=== PATIENT | male | born 1965 | race Caucasian/White ===

== ENCOUNTER 2017-01-06 20:31 | Inpatient (IN) | payer MEDICARE ==
[~2017-01-06] VITALS: Ht 185.4 cm; Wt 162.2 kg
[~2017-01-06 20:31] MED LIST: ALLO100T PO; ASPI-482 PO; ASPI325T4 PO; CARV3.12 PO; CLOP75TA27 PO; FURO40TA4 PO; GABA-586 PO; HYDR-2672 PO; HYDR-2680 PO; HYDR12.53 PO; ISOS30TA4 PO; Isosorbide Mononitrate PO; LISI-334 PO; LISI-338 PO; METO50TA2 PO; NABU500T PO; NITR0.4T SL; NPH,100V SQ; PARO20TA55 PO; PRED-220 PO; RANO10002 PO; RANO500T2 PO
--- NOTE | 2017-01-06 22:29 | EKG ---
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
--- NOTE | 2017-01-06 22:29 | PHYS DOC ---
Past Medical History Past Medical History: CAD, CHF, Hypertension, Other Additional Past Medical Histor: GOUT, NEUROPATHY, CHRONIC NECK PAIN Past Surgical History: Angioplasty, Coronary Bypass Surgery Additional Past Surgical Histo: STENT PLACEMENT X 4, COLOSTOMY Additional Information: CHEWING TOBACCO Alcohol Use: Rarely Drug Use: None Adult General Chief Complaint Chief Complaint: COUGH HPI HPI Patient is a 51 year old male who presents with complaint of cough and lower extremity swelling. Patient has history congestive heart failure and states that over 2 weeks he gained 27 pounds in water weight. The patient states over the past 2-3 days he has been quadruple in his Lasix dose as directed by his primary physician, Dr. Valencia, and states that he has lost approximately 10 pounds of the water weight. Patient states however that he has had worsening lower extremity swelling and worsening dyspnea on exertion. Patient denies any associated fevers or chest pain currently. Patient states that his cough has been productive of clear sputum. Due to worsening symptoms the patient came to the emergency department after contacting his primary physician. Review of Systems Review of Systems Constitutional: Denies fever or chills [] Eyes: Denies change in visual acuity, redness, or eye pain [] HENT: Denies nasal congestion or sore throat [] Respiratory: Dyspnea on exertion, cough, shortness of breath [] Cardiovascular: Lower extremity edema, denies chest pain [] GI: Denies abdominal pain, nausea, vomiting, bloody stools or diarrhea [] : Denies dysuria or hematuria [] Musculoskeletal: Denies back pain or joint pain [] Integument: Denies rash or skin lesions [] Neurologic: Denies headache, focal weakness or sensory changes [] Allergies Allergies Allergies Coded Allergies Type Severity Reaction Last Updated Verified morphine Allergy Severe Anaphylaxis 08/07/14 Yes adhesive Allergy Intermediate blisters 08/09/14 Yes Physical Exam Physical Exam Constitutional: Alert, afebrile, morbidly obese, no acute distress at rest. [] HENT: Normocephalic, atraumatic, bilateral external ears normal, oropharynx moist, no oral exudates, nose normal. [] Eyes: PERRLA, EOMI, conjunctiva normal, no discharge. [] Neck: Normal range of motion, no tenderness, supple, no stridor. [] Cardiovascular: Tachycardia, regular rhythm, no murmur [] Lungs & Thorax: Mild restriction of air movement bilaterally, fine rales in the bilateral lung bases, no wheezes [] Abdomen: Bowel sounds normal, soft, no tenderness, no masses, no pulsatile masses. [] Skin: Warm, dry, no erythema, no rash. [] Back: No tenderness, no CVA tenderness. [] Extremities: No tenderness, no cyanosis, no clubbing, ROM intact, 3+ pitting edema in the bilateral lower extremities extending to the superior portion of the knees bilaterally. [] Neurologic: Alert and oriented X 3, normal motor function, normal sensory function, no focal deficits noted. [] Current Patient Data Vital Signs Vital Signs Date Time Temp Pulse Resp B/P Pulse Ox O2 Delivery O2 Flow Rate FiO2 01/06/17 21:18 97.7 107 26 94/48 90 Room Air 97.7 Lab Values Laboratory Tests Test 01/06/17 22:18 01/06/17 23:05 White Blood Count 7.0x10^3/uL (4.0-11.0) Red Blood Count 4.25x10^6/uL (4.30-5.70) L Hemoglobin 13.1g/dL (13.0-17.5) Hematocrit 39.1% (39.0-53.0) Mean Corpuscular Volume 92fL (79-100) Mean Corpuscular Hemoglobin 31pg (25-35) Mean Corpuscular Hemoglobin Concent 33g/dL (31-37) Red Cell Distribution Width 15.1% (11.5-14.5) H Platelet Count 178x10^3/uL (140-400) Neutrophils (%) (Auto) 58% (31-73) Lymphocytes (%) (Auto) 22% (24-48) L Monocytes (%) (Auto) 14% (0-9) H Eosinophils (%) (Auto) 5% (0-3) H Basophils (%) (Auto) 1% (0-3) Neutrophils # (Auto) 4.1x10^3uL (1.8-7.7) Lymphocytes # (Auto) 1.6x10^3/uL (1.0-4.8) Monocytes # (Auto) 1.0x10^3/uL (0.0-1.1) Eosinophils # (Auto) 0.3x10^3/uL (0.0-0.7) Basophils # (Auto) 0.1x10^3/uL (0.0-0.2) Sodium Level 137mmol/L (136-145) Potassium Level 4.6mmol/L (3.5-5.1) Chloride Level 96mmol/L (98-107) L Carbon Dioxide Level 29mmol/L (21-32) Anion Gap 12 (6-14) Blood Urea Nitrogen 55mg/dL (8-26) H Creatinine 3.0mg/dL (0.7-1.3) H Estimated GFR (Cockcroft-Gault) 22.0 BUN/Creatinine Ratio 18 (6-20) Glucose Level 226mg/dL (70-99) H Calcium Level 9.4mg/dL (8.5-10.1) Total Bilirubin 0.4mg/dL (0.2-1.0) Aspartate Amino Transferase (AST) 25U/L (15-37) Alanine Aminotransferase (ALT) 37U/L (16-63) Alkaline Phosphatase 72U/L (46-116) Creatine Kinase 665U/L (39-308) H Creatine Kinase MB (Mass) 5.0ng/mL (0.0-3.6) H Creatine Kinase MB Relative Index 0.8% (0-4) Troponin I Quantitative 0.204ng/mL (0.000-0.055) ET-Moo-U-Type Natriuretic Peptide 590pg/mL (0-124) H Total Protein 7.6g/dL (6.4-8.2) Albumin 3.7g/dL (3.4-5.0) Albumin/Globulin Ratio 0.9 (1.0-1.7) L Laboratory Tests 01/06/17 22:18 Laboratory Tests 01/06/17 23:05 EKG EKG Interpreted by me: Heart rate 100, sinus tachycardia, incomplete right bundle branch block, no acute ST elevations or depressions [] Radiology/Procedures Radiology/Procedures Interpreted by me: Pulmonary vascular congestion, no effusions, cardiomegaly [] Course & Med Decision Making Course & Med Decision Making Pertinent Labs and Imaging studies reviewed. (See chart for details) The patient shows clinical signs for decompensated congestive heart failure. Patient's lab work remarkable for elevated troponin level likely due to demand ischemia from decompensated congestive heart failure. 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 I spoke Dr. Valencia who accepted care patient in hospital. Dragon Disclaimer Dragon Disclaimer This electronic medical record was generated, in whole or in part, using a voice recognition dictation system. Departure Departure Impression: Primary Impression: Acute on chronic congestive heart failure Additional Impressions: Elevated troponin Acute renal failure Uncontrolled diabetes mellitus Disposition: ADMITTED INPATIENT Admitting Physician: Noe Valencia Condition: GUARDED Referrals: NOE VALENCIA MD (PCP) Problem Qualifiers Primary Impression: Acute on chronic congestive heart failure Congestive heart failure type: unspecified congestive heart failure type Qualified Code: I50.9 - Heart failure, unspecified Additional Impressions: Acute renal failure Acute renal failure type: unspecified Qualified Code: N17.9 - Acute kidney failure, unspecified Uncontrolled diabetes mellitus Diabetes mellitus type: type 2 Diabetes mellitus complication status: with hyperglycemia Diabetes mellitus metabolic specialist insulin use: unspecified fpc insulin use status Qualified Code: E11.65 - Type 2 diabetes mellitus with hyperglycemia PRINCE STILL MD Jan 06, 2017 22:29
[2017-01-06 22:31] LABS: BASO # 0.1 x10^3/uL (0.0-0.2); BASO % 1 % (0-3); EOS % 5 % (0-3); HEMATOCRIT 39.1 % (39.0-53.0); HEMOGLOBIN 13.1 g/dL (13.0-17.5); LYMPH # 1.6 x10^3/uL (1.0-4.8); LYMPH % 22 % (24-48); MEAN CORPUSCULAR HEMOGLOBIN 31 pg (25-35); MEAN CORPUSCULAR HGB CONC 33 g/dL (31-37); MEAN CORPUSCULAR VOLUME 92 fL (79-100); MONO % 14 % (0-9); NEUT % 58 % (31-73); PLATELET COUNT 178 x10^3/uL (140-400); RED BLOOD COUNT 4.25 x10^6/uL (4.30-5.70); RED CELL DISTRIBUTION WIDTH 15.1 % (11.5-14.5)
[2017-01-06 23:24] LABS: CALCIUM 9.4 mg/dL (8.5-10.1); POTASSIUM 4.6 mmol/L (3.5-5.1)
[2017-01-06 23:29] LABS: ALBUMIN 3.7 g/dL (3.4-5.0); ALBUMIN/GLOBULIN RATIO 0.9 (1.0-1.7); TOTAL BILIRUBIN 0.4 mg/dL (0.2-1.0); TOTAL PROTEIN 7.6 g/dL (6.4-8.2)
[2017-01-06 23:39] LABS: CKMB INDEX 0.8 % (0-4)
[2017-01-07] VITALS (7 sets, daily range): BP systolic 104–138; BP diastolic 60–72
[2017-01-07] MEDS ORDERED: ONDANSETRON PF 4 MG/2 ML VIAL. IV PRN
[2017-01-07] MEDS ORDERED: ACETAMINOPHEN 325 MG TABLET. PO PRN
--- NOTE | 2017-01-07 01:17 | ACF ---
Admission Forms Criteria HEART FAILURE Clinical Indications for Admission to Inpatient Care (Place 'X' for any and all applicable criteria): Admission is indicated by ANY ONE of the following(1)(2)(3)(4): [ ]I. Severe electrolyte abnormalities requiring inpatient care(9) [ ]II. Hemodynamic instability [ ]III. Anasarca [ ]IV. Acute cardiac ischemia causing or associated with failure (Also use Angina or Myocardial Infarction as appropriate) [ ]V. Cardiac arrhythmias of immediate concern [ ]. Precipitating cause for acute decompensation (eg, pneumonia, pulmonary embolism) requires inpatient care [ ]VII. Pulmonary edema that is very severe (eg, mechanical ventilation needed, imminent or likely, need for 100% oxygen to keep oxygen saturation above 90%) [ ]VIII. Inpatient admission required rather than observation care (Also use Heart Failure: Observation Care as appropriate) because of ANY ONE of the following: [ ]a) Pulmonary edema that is severe or worsening as indicated by ALL of the following: [ ]i) New need for oxygen therapy to keep oxygen saturation above 90% (or increased FiO2 need from baseline) [ ]ii) Has not improved sufficiently with emergency department or observation care IV diuretics or other heart failure treatments[C] [ ]b) Cognitive impairment that is severe or persistent [ ]c) Increased creatinine (new on laboratory test) with reduction of more than 50% in estimated glomerular filtration rate from baseline. [ ]d) Acute renal insufficiency (progressively (ongoing) rising creatinine (known from past laboratory test) with reduction of more than 25% in estimated glomerular filtration rate from baseline) [ ]e) Acute peripheral ischemia (eg, pulseless, cool, mottled, or cyanotic extremity) [ ]f) Acute renal failure [ ]g) Supplemental O2 or respiratory treatment for >24 hr that are performable only in acute inpatient setting [ ]h) Pulmonary artery catheter monitoring [ ]i) Other condition, treatment or monitoring requiring inpatient admission [X]IX. Contraindications and/or Inappropriate clinical situations for Observational Care in patients with Heart Failure, when ANY ONE of the following is required: [ ]a) Patient with High risk of cardiac embolism (e.g, patients with previous cardiac embolism, LVEF < 40%, age >75 and patients with prosthetic valve) 18 [ ]b) Patient with Moderate risk including DM patient, CAD and patient aged 65-75 [ ]c) Patient with any change in cardiac biomarker especially troponin should be managed as high risk in an inpatient setting 19 [ ]d) Physician judgement irrespective of ECG and other diagnostic findings 20 [ ]e) Patients with hyponatremia have high risk for mortality and require more extensive care and length of stay 21 [X]f) Need for large volume diuresis 21 [ ]g) Presence of renal insufficiency or hypotension limiting speed of diuresis 21 [ ]h) Acute cardiac Ischemia in the elderly 21 [ ]i) Patients with a 30 day risk of mortality based on a multidimensional prognostic index (MPI) [J,]21 [ ]X. General contraindications and/or Inappropriate clinical situations for Observational Care in patients with Heart Failure, when ANY ONE of the following is required: [ ]a) Prediction of prolongation of LOS based on ANY ONE of the following may be considered as a contraindication for observational care 2, 3, 4, 5, 6, 7, 8 , 9, 10, 11 [ ]i) Age > 65 yrs. [ ]ii) Patient arriving by ambulance [ ]iii) Patient with high acuity [ ]iv) Patient requiring vital sign monitoring [ ]v) Patient on IV medication [ ]b) Systolic blood pressures 180mmHg 3,12 [ ]c) Patient with altered mental status including delirium and other alteration of consciousness, (3) [ ]d) Patient whose discharge disposition will be to a [facility] home or rehabilitation home should not be managed in Emergency Department Observation Unit. CMS rule requires 3 days hospital stay before such placement.3,13 [ ]e) Patient with failure to thrive due to broad array of etiologies 3,16,17 [ ]f) Inability to ambulate 3,14 Extended stay beyond goal length of stay may be needed for(1)(3)(21)(25): [ ]a) Cardiac ischemia, confirmed or suspected as precipitant [ ]b) Cardiogenic shock or refractory pulmonary edema [ ]c) Acute kidney injury or renal failure [ ]d) Respiratory failure (eg, need for noninvasive or invasive mechanical ventilation) (23) [ ]e) Concomitant pneumonia or significant electrolyte abnormality (eg, severe hyponatremia) [ ]f) Newly diagnosed (new onset) atrial fibrillation [ ]g) Stage IV chronic kidney disease (estimated glomerular filtration rate of less than 30 mL/min/1.73m2 (0.50 mL/sec/1.73m2), and not previously on chronic dialysis The original [facility] content created by [facility], [place] [facility] has been revised. The portions of the content which have been revised are identified through the use of italic text or in bold, and [facility], [place] [facility] has neither reviewed nor approved the modified material. All other unmodified content is copyright [facility]. Please see references footnoted in the original [facility] edition 2016 Admission Criteria Met?: Yes GASPER VALENZUELA Jan 07, 2017 01:17
[2017-01-07] MEDS ORDERED: NITROGLYCERIN SUBLINGUAL 0.4 MG BOTTLE OF 25. SL PRN (02:15)
[2017-01-07] MEDS: HYDROCODONE/APAP 10/325 TABLET. PO PRN ×3 (02:38→21:51)
[2017-01-07 04:18] LABS: BASO % 0 % (0-3); EOS % 4 % (0-3); HEMATOCRIT 39.7 % (39.0-53.0); HEMOGLOBIN 13.1 g/dL (13.0-17.5); LYMPH # 1.4 x10^3/uL (1.0-4.8); LYMPH % 21 % (24-48); MEAN CORPUSCULAR HEMOGLOBIN 31 pg (25-35); MEAN CORPUSCULAR HGB CONC 33 g/dL (31-37); MEAN CORPUSCULAR VOLUME 92 fL (79-100); MONO % 15 % (0-9); NEUT % 60 % (31-73); PLATELET COUNT 177 x10^3/uL (140-400); RED BLOOD COUNT 4.31 x10^6/uL (4.30-5.70); RED CELL DISTRIBUTION WIDTH 14.9 % (11.5-14.5); WHITE BLOOD COUNT 6.9 x10^3/uL (4.0-11.0)
[2017-01-07 04:41] LABS: CALCIUM 9.3 mg/dL (8.5-10.1); CREATININE 2.8 mg/dL (0.7-1.3); GFR 23.8; POTASSIUM 4.5 mmol/L (3.5-5.1)
[2017-01-07] MEDS ORDERED: DEXTROSE 50% 25 GM / 50ML DISP.SYRIN. IV PRN ×2 (07:15→15:00)
--- NOTE | 2017-01-07 07:47 | RAD ---
AP portable chest radiograph 01/06/2017 Clinical History: Cough and shortness of breath for 4 days. An AP portable erect digital radiograph of the chest was obtained. Comparison study is dated 06/30/2015. The patient is status post CABG procedure. The cardiac silhouette is mildly enlarged. Thoracic aorta is mildly tortuous. No acute pulmonary infiltrate is seen. No pleural effusion or pneumothorax is noted. The osseous structures are grossly intact. Impression: No acute abnormality is seen.
[2017-01-07] MEDS ORDERED: HYDROCHLOROTHIAZIDE 25 MG TABLET PO SCH (09:00)
[2017-01-07] MEDS ORDERED: MELOXICAM 7.5 MG TABLET PO SCH (09:00)
[2017-01-07] MEDS ORDERED: ISOSORBIDE MONONITRATE ER 30 MG TAB.ER.24H PO SCH (09:00)
[2017-01-07] MEDS ORDERED: FUROSEMIDE 40 MG/4 ML VIAL. IVP SCH (09:00)
[2017-01-07] MEDS ORDERED: HYDROCODONE/APAP 10/325 TABLET. PO SCH (09:00)
[2017-01-07] MEDS ORDERED: LISINOPRIL 20 MG TABLET PO SCH (09:00)
[2017-01-07] MEDS ORDERED: ALLOPURINOL 300 MG TABLET. PO SCH (09:00)
--- NOTE | 2017-01-07 09:43 | PDOC ---
Provider Note Provider Note [id number] LATRICIA SOLORZANO MD Jan 07, 2017 09:43
[2017-01-07] MEDS: RANOLAZINE 500 MG TAB.ER.12H PO SCH ×2 (10:07→20:57)
[2017-01-07] MEDS: CLOPIDOGREL BISULFATE 75 MG TABLET PO SCH (10:08)
[2017-01-07] MEDS: GABAPENTIN 300 MG CAPSULE. PO SCH ×2 (10:08→20:56)
[2017-01-07] MEDS: PAROXETINE 20 MG TABLET. PO SCH (10:12)
[2017-01-07] MEDS: CARVEDILOL 3.125 MG TABLET. PO SCH ×2 (10:12→18:12)
[2017-01-07] MEDS: ASPIRIN ENTERIC COATED 81 MG TABLET.DR. PO SCH (10:12)
[2017-01-07] MEDS: ISOSORBIDE MONONITRATE ER 30 MG TAB.ER.24H PO SCH (10:13)
--- NOTE | 2017-01-07 11:13 | HP ---
ADMIT DATE: 01/07/2017 CHIEF COMPLAINT: Shortness of breath and edema. HISTORY OF PRESENT ILLNESS: A 51-year-old white male with known coronary artery disease, diabetes, and Crohn's disease. He has had increasing swelling and dyspnea and orthopnea and PND for the last 2 weeks despite outpatient increasing dose of Lasix. He is found also to be in acute renal failure in the ER, which is new for him, although he had it about 3 months ago when he had before cardiac catheterization, but that resolved. PAST MEDICAL HISTORY: Multiple. MEDICATIONS: Per chart. ALLERGIES: MORPHINE. SURGICAL HISTORY: He has had a coronary bypass and ileostomy. SOCIAL HISTORY: Nonsmoker, nondrinker, physically active as he is capable. FAMILY HISTORY: Unremarkable. REVIEW OF SYSTEMS: No other known problems. OBJECTIVE: ENT: ____, mildly cushingoid facies, otherwise unremarkable. NECK: No bruits, nodes or masses. LUNGS: Decreased breath sounds. Few basilar crackles, no wheezes. CARDIOVASCULAR: Regular rate. Heart tones distant. No irregular beat or murmur or rub. ABDOMEN: Protuberant, obese, benign, nontender. EXTREMITIES: 2-3+ edema just below the knees bilaterally. Pedal pulses are diminished consistent with lower blood pressure. Upper extremities normal. NEUROLOGIC: Physiologic. ASSESSMENT: Edema, likely multifactorial in a patient with history of coronary artery disease, diabetes, Crohn's disease and sleep apnea. He also has prior history of some renal problems with the baseline creatinine was around 1.2. PLAN: As ordered. LATRICIA SOLORZANO MD DR: MIREYA/sandrita JOB#: [id number] / [id number]
--- NOTE | 2017-01-07 12:06 | PDOC2 ---
CONSULT Date of Consult Date of Consult DATE: 01/07/17 TIME: 11:58 Reason for Consult Reason for Consult: ANTOINE Referring Physician Referring Physician: JEANINE Identification/Chief Complaint Chief Complaint SOB AND SWELLING Source Source: Chart review, Patient History of Present Illness Reason for Visit: THIS IS A 51 YR OLD HERE WITH COMPLAINTS OF SOB AND INCREASING LE EDEMA. NO CKD IS NOTED BUT HE HAS HAD SOME MILD ANTOINE WITH CR OF IN SEP OF LAST YEAR. ON THIS ADMIT HIS CREATININE LEVEL IS 3.0. MEDS INCLUDED MOBIC, LASIX, HCTZ AND LISINOPRIL AT HOME. NO HX OF ANY DIFFICULTY EMPTYING HIS BLADDER. NO HX OF ANY KIDNEY OR BLADDER SURGERIES HEMATURIA DYSURIA OR FREQUENCY NOTED. HIS BNP IS NOT VERY HIGH. HE ALSO HAS A LEFT PRETIBIAL AREA WOUND Past Medical History Cardiovascular: CAD, CHF, HTN, [place] Pulmonary: COPD Renal/: Acute renal failure Endocrine: Diabetes Current Problem List Problem List Problems Medical Problems: (1) Acute on chronic congestive heart failure Status: Acute (2) Acute renal failure Status: Acute (3) Elevated troponin Status: Acute (4) Uncontrolled diabetes mellitus Status: Acute Current Medications Current Medications Current Medications Ondansetron HCl (Zofran) 4 mg PRN Q8HRS PRN IV NAUSEA/VOMITING; Start 01/07/17 at 00:00; Stop 01/07/17 at 23:59 Acetaminophen (Tylenol) 650 mg PRN Q4HRS PRN PO FEVER; Start 01/07/17 at 00:00 ; Stop 01/07/17 at 23:59 Furosemide (Lasix) 80 mg BID92 IVP Last administered on 01/07/17 10:04; Start 01/07/17 at 09:00 Allopurinol (Zyloprim) 300 mg DAILY PO ; Start 01/07/17 at 09:00; Stop 01/07/17 at 09:34; Status DC Aspirin (Ecotrin) 81 mg DAILY PO Last administered on 01/07/17 10:12; Start at 09:00 Carvedilol (Coreg) 3.125 mg BIDWMEALS PO Last administered on 01/07/17 10:12; Start 01/07/17 at 08:00 Clopidogrel Bisulfate (Plavix) 75 mg DAILY PO Last administered on 01/07/17 10 :08; Start 01/07/17 at 09:00 Hydrochlorothiazide (Hydrodiuril) 25 mg DAILY PO ; Start 01/07/17 at 09:00; Stop 01/07/17 at 09:34; Status DC Acetaminophen/ Hydrocodone Bitart (Lortab 10/325) 1 tab QID PO ; Start 01/07/17 at 09:00; Stop 01/07/17 at 09:00; Status DC Isosorbide Mononitrate (Imdur) 30 mg TID PO ; Start 01/07/17 at 09:00; Stop at 09:34; Status DC Lisinopril (Prinivil) 20 mg DAILY PO ; Start 01/07/17 at 09:00; Stop 01/07/17 at 09:34; Status DC Nitroglycerin (Nitrostat) 0.4 mg PRN Q5MIN PRN SL CHEST PAIN; Start 01/07/17 at 02:15 Paroxetine HCl (Paxil) 20 mg DAILY PO Last administered on 01/07/17 10:12; Start 01/07/17 at 09:00 Gabapentin (Neurontin) 300 mg BID PO Last administered on 01/07/17 10:08; Start 01/07/17 at 09:00 Meloxicam (Mobic) 7.5 mg DAILY PO ; Start 01/07/17 at 09:00; Stop 01/07/17 at 09 :34; Status DC Insulin Detemir (Levemir) 135 units BID SQ ; Start 01/07/17 at 21:00 Ranolazine (Ranexa) 1,000 mg BID PO Last administered on 01/07/17 10:07; Start 01/07/17 at 09:00 Acetaminophen/ Hydrocodone Bitart (Lortab 10/325) 1 tab PRN Q6HRS PRN PO SEVERE PAIN Last administered on 01/07/17 10:06; Start 01/07/17 at 02:30 Dextrose (Dextrose 50%-Water Syringe) 12.5 gm PRN Q15MIN PRN IV SEE COMMENTS; Start 01/07/17 at 07:15 Isosorbide Mononitrate (Imdur) 30 mg DAILY08 PO Last administered on 01/07/17 10:13; Start 01/07/17 at 10:00 Active Scripts Active Coreg (Carvedilol) 3.125 Mg Tablet 3.125 Mg PO BIDWMEALS Reported Prednisone 10 Mg Tablet 10 Mg PO UD Take 3 tablets by mouth twice a day for 3 days, then take 2 tablets by mouth twice a day for 3 days, then take 1 tablet by mouth twice a day for 3 days, then take 1 tablet by mouth daily x 3 days, then stop. Furosemide 40 Mg Tablet 1 Tab PO DAILY Aspir 81 (Aspirin) 81 Mg Tablet.dr 1 Tab PO DAILY Nitrostat (Nitroglycerin) 0.4 Mg Tab.subl 0.4 Mg SL PRN Q5MIN PRN Isosorbide Mononitrate Er (Isosorbide Mononitrate) 30 Mg Tab.er.24h 30 Mg PO TID Ranexa (Ranolazine) 1,000 Mg Tab.er.12h 1 Tab PO BID Lisinopril 20 Mg Tablet 1 Tab PO DAILY Lortab 10-325 mg Tablet (Hydrocodone/Acetaminophen) 1 Each Tablet 1 Tab PO QID Plavix (Clopidogrel Bisulfate) 75 Mg Tablet 1 Tab PO DAILY Gabapentin 300 Mg Capsule 1 Cap PO BID Hydrochlorothiazide Capsule (Hydrochlorothiazide) 12.5 Mg Capsule 25 Mg PO DAILY Paxil (Paroxetine Hcl) 20 Mg Tablet 1 Tab PO DAILY Allopurinol 100 Mg Tablet 3 Tab PO DAILY Nabumetone 500 Mg Tablet 1 Tab PO BID Humulin N (Nph, Human Insulin Isophane) 100 Unit/1 Ml Vial 90 Unit SQ TID Allergies Allergies: Coded Allergies: morphine (Verified Allergy, Severe, Anaphylaxis, 08/07/14) adhesive (Verified Allergy, Intermediate, blisters, 08/09/14) ROS General: YES: Appetite, Fatigue PSYCHOLOGICAL ROS: YES: Anxiety Eyes: Yes Decreased vision HEENT: YES: Heacaches Respiratory: YES: Shortness of breath Cardiovascular: yes Edema, yes Orthopnea Genitourinary: YES Other Neurological: Yes Weakness Physical Exam General: Alert, No acute distress Lungs: Clear to auscultation, Normal air movement Heart: Regular rate Abdomen: Normal bowel sounds Extremities: No clubbing Neuro: Normal speech, Cranial nerves 3-12 NL Psych/Mental Status: Mental status NL, Mood NL MUSCULOSKELETAL: No deformity Vitals VITALS Vital Signs Date Time Temp Pulse Resp B/P Pulse Ox O2 Delivery O2 Flow Rate FiO2 01/07/17 11:04 98.2 97 18 120/68 95 Room Air 98.2 Labs Labs Laboratory Tests Test 01/06/17 22:18 01/06/17 23:05 01/07/17 03:37 01/07/17 10:49 White Blood Count 7.0x10^3/uL (4.0-11.0) 6.9x10^3/uL (4.0-11.0) Red Blood Count 4.25x10^6/uL (4.30-5.70) 4.31x10^6/uL (4.30-5.70) Hemoglobin 13.1g/dL (13.0-17.5) 13.1g/dL (13.0-17.5) Hematocrit 39.1% (39.0-53.0) 39.7% (39.0-53.0) Mean Corpuscular Volume 92fL (79-100) 92fL (79-100) Mean Corpuscular Hemoglobin 31pg (25-35) 31pg (25-35) Mean Corpuscular Hemoglobin Concent 33g/dL (31-37) 33g/dL (31-37) Red Cell Distribution Width 15.1% (11.5-14.5) 14.9% (11.5-14.5) Platelet Count 178x10^3/uL (140-400) 177x10^3/uL (140-400) Neutrophils (%) (Auto) 58% (31-73) 60% (31-73) Lymphocytes (%) (Auto) 22% (24-48) 21% (24-48) Monocytes (%) (Auto) 14% (0-9) 15% (0-9) Eosinophils (%) (Auto) 5% (0-3) 4% (0-3) Basophils (%) (Auto) 1% (0-3) 0% (0-3) Neutrophils # (Auto) 4.1x10^3uL (1.8-7.7) 4.1x10^3uL (1.8-7.7) Lymphocytes # (Auto) 1.6x10^3/uL (1.0-4.8) 1.4x10^3/uL (1.0-4.8) Monocytes # (Auto) 1.0x10^3/uL (0.0-1.1) 1.0x10^3/uL (0.0-1.1) Eosinophils # (Auto) 0.3x10^3/uL (0.0-0.7) 0.3x10^3/uL (0.0-0.7) Basophils # (Auto) 0.1x10^3/uL (0.0-0.2) 0.0x10^3/uL (0.0-0.2) Sodium Level 137mmol/L (136-145) 137mmol/L (136-145) Potassium Level 4.6mmol/L (3.5-5.1) 4.5mmol/L (3.5-5.1) Chloride Level 96mmol/L (98-107) 97mmol/L (98-107) Carbon Dioxide Level 29mmol/L (21-32) 30mmol/L (21-32) Anion Gap 12 (6-14) 10 (6-14) Blood Urea Nitrogen 55mg/dL (8-26) 55mg/dL (8-26) Creatinine 3.0mg/dL (0.7-1.3) 2.8mg/dL (0.7-1.3) Estimated GFR (Cockcroft-Gault) 22.0 23.8 BUN/Creatinine Ratio 18 (6-20) Glucose Level 226mg/dL (70-99) 202mg/dL (70-99) Calcium Level 9.4mg/dL (8.5-10.1) 9.3mg/dL (8.5-10.1) Total Bilirubin 0.4mg/dL (0.2-1.0) Aspartate Amino Transf (AST/SGOT) 25U/L (15-37) Alanine Aminotransferase (ALT/SGPT) 37U/L (16-63) Alkaline Phosphatase 72U/L (46-116) Creatine Kinase 665U/L (39-308) Creatine Kinase MB (Mass) 5.0ng/mL (0.0-3.6) Creatine Kinase MB Relative Index 0.8% (0-4) Troponin I Quantitative 0.204ng/mL (0.000-0.055) 0.197ng/mL (0.000-0.055) XF-Xbn-P-Type Natriuretic Peptide 590pg/mL (0-124) Total Protein 7.6g/dL (6.4-8.2) Albumin 3.7g/dL (3.4-5.0) Albumin/Globulin Ratio 0.9 (1.0-1.7) Glucose (Fingerstick) 264mg/dL (70-99) Laboratory Tests Test 01/06/17 22:18 01/06/17 23:05 01/07/17 03:37 01/07/17 10:49 White Blood Count 7.0x10^3/uL (4.0-11.0) 6.9x10^3/uL (4.0-11.0) Red Blood Count 4.25x10^6/uL (4.30-5.70) 4.31x10^6/uL (4.30-5.70) Hemoglobin 13.1g/dL (13.0-17.5) 13.1g/dL (13.0-17.5) Hematocrit 39.1% (39.0-53.0) 39.7% (39.0-53.0) Mean Corpuscular Volume 92fL (79-100) 92fL (79-100) Mean Corpuscular Hemoglobin 31pg (25-35) 31pg (25-35) Mean Corpuscular Hemoglobin Concent 33g/dL (31-37) 33g/dL (31-37) Red Cell Distribution Width 15.1% (11.5-14.5) 14.9% (11.5-14.5) Platelet Count 178x10^3/uL (140-400) 177x10^3/uL (140-400) Neutrophils (%) (Auto) 58% (31-73) 60% (31-73) Lymphocytes (%) (Auto) 22% (24-48) 21% (24-48) Monocytes (%) (Auto) 14% (0-9) 15% (0-9) Eosinophils (%) (Auto) 5% (0-3) 4% (0-3) Basophils (%) (Auto) 1% (0-3) 0% (0-3) Neutrophils # (Auto) 4.1x10^3uL (1.8-7.7) 4.1x10^3uL (1.8-7.7) Lymphocytes # (Auto) 1.6x10^3/uL (1.0-4.8) 1.4x10^3/uL (1.0-4.8) Monocytes # (Auto) 1.0x10^3/uL (0.0-1.1) 1.0x10^3/uL (0.0-1.1) Eosinophils # (Auto) 0.3x10^3/uL (0.0-0.7) 0.3x10^3/uL (0.0-0.7) Basophils # (Auto) 0.1x10^3/uL (0.0-0.2) 0.0x10^3/uL (0.0-0.2) Sodium Level 137mmol/L (136-145) 137mmol/L (136-145) Potassium Level 4.6mmol/L (3.5-5.1) 4.5mmol/L (3.5-5.1) Chloride Level 96mmol/L (98-107) 97mmol/L (98-107) Carbon Dioxide Level 29mmol/L (21-32) 30mmol/L (21-32) Anion Gap 12 (6-14) 10 (6-14) Blood Urea Nitrogen 55mg/dL (8-26) 55mg/dL (8-26) Creatinine 3.0mg/dL (0.7-1.3) 2.8mg/dL (0.7-1.3) Estimated GFR (Cockcroft-Gault) 22.0 23.8 BUN/Creatinine Ratio 18 (6-20) Glucose Level 226mg/dL (70-99) 202mg/dL (70-99) Calcium Level 9.4mg/dL (8.5-10.1) 9.3mg/dL (8.5-10.1) Total Bilirubin 0.4mg/dL (0.2-1.0) Aspartate Amino Transf (AST/SGOT) 25U/L (15-37) Alanine Aminotransferase (ALT/SGPT) 37U/L (16-63) Alkaline Phosphatase 72U/L (46-116) Creatine Kinase 665U/L (39-308) Creatine Kinase MB (Mass) 5.0ng/mL (0.0-3.6) Creatine Kinase MB Relative Index 0.8% (0-4) Troponin I Quantitative 0.204ng/mL (0.000-0.055) 0.197ng/mL (0.000-0.055) TL-Oci-M-Type Natriuretic Peptide 590pg/mL (0-124) Total Protein 7.6g/dL (6.4-8.2) Albumin 3.7g/dL (3.4-5.0) Albumin/Globulin Ratio 0.9 (1.0-1.7) Glucose (Fingerstick) 264mg/dL (70-99) Assessment/Plan Assessment/Plan IMP ANTOINE PROB DEHYDRATION LE EDEMA LEFT PRETIBIAL WOUND PLAN AVOID GUERRA 2 INHIBITORS HOLD YOSVANY AND HCTZ FOR NOW DECREASE LASIX LE EDEMA MOST LIKELY INFLAMMATORY IN NATURE HIS BNP AND CXRAY ARE NOT SUGGESTIVE OF HYPERVOLEMIA RENAL SONOGRAM MAGDALENE QUINTANILLA MD Jan 07, 2017 12:06
[2017-01-07] MEDS: FUROSEMIDE 40 MG/4 ML VIAL. IVP SCH (15:06)
[2017-01-07] MEDS: INSULIN DETEMIR 300 UNITS/3 ML INSULN.PEN. SQ SCH ×2 (15:19→21:55)
--- NOTE | 2017-01-07 15:43 | RAD ---
Renal ultrasound 01/07/2017 Clinical history: Chronic kidney disease. Technique: A real-time ultrasound examination of both kidneys and the urinary bladder was performed. Multiple images were obtained. Findings: Both kidneys are within normal limits in size. The right kidney measures 11.8 cm in length. The left kidney measures 12.6 cm in length. A 2.7 cm simple cyst is seen involving the midpole of the left kidney. No additional abnormality of either kidney is seen. There is no evidence of hydronephrosis. The urinary bladder is distended with urine. No abnormality is seen. The urinary volume is estimated to be 443 mL. Impression: Negative study.
--- NOTE | 2017-01-07 15:54 | PDOC2 ---
CONSULT Date of Consult Date of Consult DATE: 01/07/17 TIME: 15:43 Reason for Consult Reason for Consult: Acute on Chronic CHF Referring Physician Referring Physician: Dr. Noe Valencia Identification/Chief Complaint Chief Complaint Cough, lower extremity edema Source Source: Chart review, Patient History of Present Illness Reason for Visit: Patient complains of nonproductive cough and edema of 2 weeks duration. PMH significant for CHF, DM2, Crohns, CAD s/p CABG x3, and multiple cardiac stents. Over the past 2 weeks, the patient put on over 20 pounds in water weight. His PCP (Dr. Valencia) told him to quadruple his lasix dose to 80mg resulting in him losing 10 pounds of the water weight in 2-3 days duration. He did not feel that he was progressing well enough and came into the ED to be admitted. He denies CP and fever. Past Medical History Cardiovascular: CAD, CHF, HTN, [place] Pulmonary: COPD Renal/: Acute renal failure Endocrine: Diabetes Current Problem List Problem List Problems Medical Problems: (1) Acute on chronic congestive heart failure Status: Acute (2) Acute renal failure Status: Acute (3) Elevated troponin Status: Acute (4) Uncontrolled diabetes mellitus Status: Acute Current Medications Current Medications Current Medications Ondansetron HCl (Zofran) 4 mg PRN Q8HRS PRN IV NAUSEA/VOMITING; Start 01/07/17 at 00:00; Stop 01/07/17 at 23:59 Acetaminophen (Tylenol) 650 mg PRN Q4HRS PRN PO FEVER; Start 01/07/17 at 00:00 ; Stop 01/07/17 at 23:59 Furosemide (Lasix) 80 mg BID92 IVP Last administered on 01/07/17 10:04; Start 01/07/17 at 09:00; Stop 01/07/17 at 12:08; Status DC Allopurinol (Zyloprim) 300 mg DAILY PO ; Start 01/07/17 at 09:00; Stop 01/07/17 at 09:34; Status DC Aspirin (Ecotrin) 81 mg DAILY PO Last administered on 01/07/17 10:12; Start at 09:00 Carvedilol (Coreg) 3.125 mg BIDWMEALS PO Last administered on 01/07/17 10:12; Start 01/07/17 at 08:00 Clopidogrel Bisulfate (Plavix) 75 mg DAILY PO Last administered on 01/07/17 10 :08; Start 01/07/17 at 09:00 Hydrochlorothiazide (Hydrodiuril) 25 mg DAILY PO ; Start 01/07/17 at 09:00; Stop 01/07/17 at 09:34; Status DC Acetaminophen/ Hydrocodone Bitart (Lortab 10/325) 1 tab QID PO ; Start 01/07/17 at 09:00; Stop 01/07/17 at 09:00; Status DC Isosorbide Mononitrate (Imdur) 30 mg TID PO ; Start 01/07/17 at 09:00; Stop at 09:34; Status DC Lisinopril (Prinivil) 20 mg DAILY PO ; Start 01/07/17 at 09:00; Stop 01/07/17 at 09:34; Status DC Nitroglycerin (Nitrostat) 0.4 mg PRN Q5MIN PRN SL CHEST PAIN; Start 01/07/17 at 02:15 Paroxetine HCl (Paxil) 20 mg DAILY PO Last administered on 01/07/17 10:12; Start 01/07/17 at 09:00 Gabapentin (Neurontin) 300 mg BID PO Last administered on 01/07/17 10:08; Start 01/07/17 at 09:00 Meloxicam (Mobic) 7.5 mg DAILY PO ; Start 01/07/17 at 09:00; Stop 01/07/17 at 09 :34; Status DC Insulin Detemir (Levemir) 135 units BID SQ ; Start 01/07/17 at 21:00; Stop 01/07 at 21:00; Status DC Ranolazine (Ranexa) 1,000 mg BID PO Last administered on 01/07/17 10:07; Start 01/07/17 at 09:00 Acetaminophen/ Hydrocodone Bitart (Lortab 10/325) 1 tab PRN Q6HRS PRN PO SEVERE PAIN Last administered on 01/07/17 02:38; Start 01/07/17 at 02:30 Dextrose (Dextrose 50%-Water Syringe) 12.5 gm PRN Q15MIN PRN IV SEE COMMENTS; Start 01/07/17 at 07:15; Stop 01/07/17 at 14:57; Status DC Isosorbide Mononitrate (Imdur) 30 mg DAILY08 PO Last administered on 01/07/17 10:13; Start 01/07/17 at 10:00 Furosemide (Lasix) 40 mg BID92 IVP Last administered on 01/07/17 15:06; Start 01/07/17 at 14:00 Insulin Detemir (Levemir) 60 units QHS SQ Last administered on 01/07/17 15:19 ; Start 01/07/17 at 15:00 Insulin Detemir (Levemir) 60 units DAILY08 SQ ; Start 01/08/17 at 08:00 Dextrose (Dextrose 50%-Water Syringe) 12.5 gm PRN Q15MIN PRN IV SEE COMMENTS; Start 01/07/17 at 15:00 Insulin Aspart (Novolog) 10 units TIDAC SQ ; Start 01/07/17 at 16:30 Active Scripts Active Coreg (Carvedilol) 3.125 Mg Tablet 3.125 Mg PO BIDWMEALS Reported Prednisone 10 Mg Tablet 10 Mg PO UD Take 3 tablets by mouth twice a day for 3 days, then take 2 tablets by mouth twice a day for 3 days, then take 1 tablet by mouth twice a day for 3 days, then take 1 tablet by mouth daily x 3 days, then stop. Furosemide 40 Mg Tablet 1 Tab PO DAILY Aspir 81 (Aspirin) 81 Mg Tablet.dr 1 Tab PO DAILY Nitrostat (Nitroglycerin) 0.4 Mg Tab.subl 0.4 Mg SL PRN Q5MIN PRN Isosorbide Mononitrate Er (Isosorbide Mononitrate) 30 Mg Tab.er.24h 30 Mg PO TID Ranexa (Ranolazine) 1,000 Mg Tab.er.12h 1 Tab PO BID Lisinopril 20 Mg Tablet 1 Tab PO DAILY Lortab 10-325 mg Tablet (Hydrocodone/Acetaminophen) 1 Each Tablet 1 Tab PO QID Plavix (Clopidogrel Bisulfate) 75 Mg Tablet 1 Tab PO DAILY Gabapentin 300 Mg Capsule 1 Cap PO BID Hydrochlorothiazide Capsule (Hydrochlorothiazide) 12.5 Mg Capsule 25 Mg PO DAILY Paxil (Paroxetine Hcl) 20 Mg Tablet 1 Tab PO DAILY Allopurinol 100 Mg Tablet 3 Tab PO DAILY Nabumetone 500 Mg Tablet 1 Tab PO BID Humulin N (Nph, Human Insulin Isophane) 100 Unit/1 Ml Vial 90 Unit SQ TID Allergies Allergies: Coded Allergies: morphine (Verified Allergy, Severe, Anaphylaxis, 08/07/14) adhesive (Verified Allergy, Intermediate, blisters, 08/09/14) Physical Exam General: Alert, Oriented X3, Cooperative, No acute distress HEENT: Atraumatic, EOMI Lungs: Clear to auscultation Heart: Regular rate, Normal S1, Normal S2, Other (distant heart sounds) Abdomen: Soft, No tenderness Extremities: Other (3+ pitting edema in bilateral lower extremities below knee) Skin: Other (pretibial L lesion) Neuro: Normal speech, Normal tone Psych/Mental Status: Mental status NL, Mood NL Vitals VITALS Vital Signs Date Time Temp Pulse Resp B/P Pulse Ox O2 Delivery O2 Flow Rate FiO2 01/07/17 15:00 98.6 94 18 111/64 92 Room Air 98.6 Labs Labs Laboratory Tests Test 01/06/17 22:18 01/06/17 23:05 01/07/17 03:37 01/07/17 10:49 White Blood Count 7.0x10^3/uL (4.0-11.0) 6.9x10^3/uL (4.0-11.0) Red Blood Count 4.25x10^6/uL (4.30-5.70) 4.31x10^6/uL (4.30-5.70) Hemoglobin 13.1g/dL (13.0-17.5) 13.1g/dL (13.0-17.5) Hematocrit 39.1% (39.0-53.0) 39.7% (39.0-53.0) Mean Corpuscular Volume 92fL (79-100) 92fL (79-100) Mean Corpuscular Hemoglobin 31pg (25-35) 31pg (25-35) Mean Corpuscular Hemoglobin Concent 33g/dL (31-37) 33g/dL (31-37) Red Cell Distribution Width 15.1% (11.5-14.5) 14.9% (11.5-14.5) Platelet Count 178x10^3/uL (140-400) 177x10^3/uL (140-400) Neutrophils (%) (Auto) 58% (31-73) 60% (31-73) Lymphocytes (%) (Auto) 22% (24-48) 21% (24-48) Monocytes (%) (Auto) 14% (0-9) 15% (0-9) Eosinophils (%) (Auto) 5% (0-3) 4% (0-3) Basophils (%) (Auto) 1% (0-3) 0% (0-3) Neutrophils # (Auto) 4.1x10^3uL (1.8-7.7) 4.1x10^3uL (1.8-7.7) Lymphocytes # (Auto) 1.6x10^3/uL (1.0-4.8) 1.4x10^3/uL (1.0-4.8) Monocytes # (Auto) 1.0x10^3/uL (0.0-1.1) 1.0x10^3/uL (0.0-1.1) Eosinophils # (Auto) 0.3x10^3/uL (0.0-0.7) 0.3x10^3/uL (0.0-0.7) Basophils # (Auto) 0.1x10^3/uL (0.0-0.2) 0.0x10^3/uL (0.0-0.2) Sodium Level 137mmol/L (136-145) 137mmol/L (136-145) Potassium Level 4.6mmol/L (3.5-5.1) 4.5mmol/L (3.5-5.1) Chloride Level 96mmol/L (98-107) 97mmol/L (98-107) Carbon Dioxide Level 29mmol/L (21-32) 30mmol/L (21-32) Anion Gap 12 (6-14) 10 (6-14) Blood Urea Nitrogen 55mg/dL (8-26) 55mg/dL (8-26) Creatinine 3.0mg/dL (0.7-1.3) 2.8mg/dL (0.7-1.3) Estimated GFR (Cockcroft-Gault) 22.0 23.8 BUN/Creatinine Ratio 18 (6-20) Glucose Level 226mg/dL (70-99) 202mg/dL (70-99) Calcium Level 9.4mg/dL (8.5-10.1) 9.3mg/dL (8.5-10.1) Total Bilirubin 0.4mg/dL (0.2-1.0) Aspartate Amino Transf (AST/SGOT) 25U/L (15-37) Alanine Aminotransferase (ALT/SGPT) 37U/L (16-63) Alkaline Phosphatase 72U/L (46-116) Creatine Kinase 665U/L (39-308) Creatine Kinase MB (Mass) 5.0ng/mL (0.0-3.6) Creatine Kinase MB Relative Index 0.8% (0-4) Troponin I Quantitative 0.204ng/mL (0.000-0.055) 0.197ng/mL (0.000-0.055) DR-Tru-O-Type Natriuretic Peptide 590pg/mL (0-124) Total Protein 7.6g/dL (6.4-8.2) Albumin 3.7g/dL (3.4-5.0) Albumin/Globulin Ratio 0.9 (1.0-1.7) Glucose (Fingerstick) 264mg/dL (70-99) Test 01/07/17 11:40 Troponin I Quantitative 0.193ng/mL (0.000-0.055) Laboratory Tests Test 01/06/17 22:18 01/06/17 23:05 01/07/17 03:37 01/07/17 10:49 White Blood Count 7.0x10^3/uL (4.0-11.0) 6.9x10^3/uL (4.0-11.0) Red Blood Count 4.25x10^6/uL (4.30-5.70) 4.31x10^6/uL (4.30-5.70) Hemoglobin 13.1g/dL (13.0-17.5) 13.1g/dL (13.0-17.5) Hematocrit 39.1% (39.0-53.0) 39.7% (39.0-53.0) Mean Corpuscular Volume 92fL (79-100) 92fL (79-100) Mean Corpuscular Hemoglobin 31pg (25-35) 31pg (25-35) Mean Corpuscular Hemoglobin Concent 33g/dL (31-37) 33g/dL (31-37) Red Cell Distribution Width 15.1% (11.5-14.5) 14.9% (11.5-14.5) Platelet Count 178x10^3/uL (140-400) 177x10^3/uL (140-400) Neutrophils (%) (Auto) 58% (31-73) 60% (31-73) Lymphocytes (%) (Auto) 22% (24-48) 21% (24-48) Monocytes (%) (Auto) 14% (0-9) 15% (0-9) Eosinophils (%) (Auto) 5% (0-3) 4% (0-3) Basophils (%) (Auto) 1% (0-3) 0% (0-3) Neutrophils # (Auto) 4.1x10^3uL (1.8-7.7) 4.1x10^3uL (1.8-7.7) Lymphocytes # (Auto) 1.6x10^3/uL (1.0-4.8) 1.4x10^3/uL (1.0-4.8) Monocytes # (Auto) 1.0x10^3/uL (0.0-1.1) 1.0x10^3/uL (0.0-1.1) Eosinophils # (Auto) 0.3x10^3/uL (0.0-0.7) 0.3x10^3/uL (0.0-0.7) Basophils # (Auto) 0.1x10^3/uL (0.0-0.2) 0.0x10^3/uL (0.0-0.2) Sodium Level 137mmol/L (136-145) 137mmol/L (136-145) Potassium Level 4.6mmol/L (3.5-5.1) 4.5mmol/L (3.5-5.1) Chloride Level 96mmol/L (98-107) 97mmol/L (98-107) Carbon Dioxide Level 29mmol/L (21-32) 30mmol/L (21-32) Anion Gap 12 (6-14) 10 (6-14) Blood Urea Nitrogen 55mg/dL (8-26) 55mg/dL (8-26) Creatinine 3.0mg/dL (0.7-1.3) 2.8mg/dL (0.7-1.3) Estimated GFR (Cockcroft-Gault) 22.0 23.8 BUN/Creatinine Ratio 18 (6-20) Glucose Level 226mg/dL (70-99) 202mg/dL (70-99) Calcium Level 9.4mg/dL (8.5-10.1) 9.3mg/dL (8.5-10.1) Total Bilirubin 0.4mg/dL (0.2-1.0) Aspartate Amino Transf (AST/SGOT) 25U/L (15-37) Alanine Aminotransferase (ALT/SGPT) 37U/L (16-63) Alkaline Phosphatase 72U/L (46-116) Creatine Kinase 665U/L (39-308) Creatine Kinase MB (Mass) 5.0ng/mL (0.0-3.6) Creatine Kinase MB Relative Index 0.8% (0-4) Troponin I Quantitative 0.204ng/mL (0.000-0.055) 0.197ng/mL (0.000-0.055) JO-Cnx-Z-Type Natriuretic Peptide 590pg/mL (0-124) Total Protein 7.6g/dL (6.4-8.2) Albumin 3.7g/dL (3.4-5.0) Albumin/Globulin Ratio 0.9 (1.0-1.7) Glucose (Fingerstick) 264mg/dL (70-99) Test 01/07/17 11:40 Troponin I Quantitative 0.193ng/mL (0.000-0.055) Assessment/Plan Assessment/Plan Assessment: ANTOINE CHF exacerbation DM2 CAD Crohn's Ischemic cardiomyopathy Plan: 1. Echocardiogram ordered - dobutamine if LV EF < 30% 2. Lasix drip if nephrology agreeable 3. Follow labs TRISTIN CORDOVA MD Jan 07, 2017 15:54
[2017-01-07] MEDS: INSULIN ASPART 300 UNITS/3 ML INSULN.PEN SQ SCH (18:16)
[2017-01-07] MEDS ORDERED: INSULIN DETEMIR 300 UNITS/3 ML INSULN.PEN. SQ SCH (21:00)
[2017-01-08 03:35] VITALS: BP 114/62
[2017-01-08 04:12] LABS: CALCIUM 9.1 mg/dL (8.5-10.1); CREATININE 2.1 mg/dL (0.7-1.3); GFR 33.2; POTASSIUM 4.5 mmol/L (3.5-5.1)
[2017-01-08 07:00] VITALS: BP 135/74
[2017-01-08] MEDS: INSULIN ASPART 300 UNITS/3 ML INSULN.PEN SQ SCH ×3 (07:30→17:18)
[2017-01-08] MEDS: ASPIRIN ENTERIC COATED 81 MG TABLET.DR. PO SCH (08:25)
[2017-01-08] MEDS: CARVEDILOL 3.125 MG TABLET. PO SCH ×2 (08:25→17:15)
[2017-01-08] MEDS: ISOSORBIDE MONONITRATE ER 30 MG TAB.ER.24H PO SCH (08:25)
[2017-01-08] MEDS: GABAPENTIN 300 MG CAPSULE. PO SCH ×2 (08:26→21:10)
[2017-01-08] MEDS: PAROXETINE 20 MG TABLET. PO SCH (08:26)
[2017-01-08] MEDS: CLOPIDOGREL BISULFATE 75 MG TABLET PO SCH (08:26)
[2017-01-08] MEDS: RANOLAZINE 500 MG TAB.ER.12H PO SCH ×2 (08:27→21:11)
[2017-01-08] MEDS: FUROSEMIDE 40 MG/4 ML VIAL. IVP SCH (08:29)
[2017-01-08] MEDS: INSULIN DETEMIR 300 UNITS/3 ML INSULN.PEN. SQ SCH ×2 (08:42→21:26)
--- NOTE | 2017-01-08 08:45 | PDOC ---
Provider Note Provider Note vss, dyspnea better- output > 5 L- edema reduced 50 % or so, creat down to 2.1- sono ok, echo pending- will hold iv lasix after next dose and follow, other meds held re LATRICIA Hopper MD Jan 08, 2017 08:45
[2017-01-08 10:53] VITALS: BP 117/57
--- NOTE | 2017-01-08 11:18 | PDOC ---
Renal-Progress Notes Subjective Notes Notes NONE, FEELING BETTER History of Present Illness Hx of present illness STABLE Vitals Vitals Vital Signs Date Time Temp Pulse Resp B/P Pulse Ox O2 Delivery O2 Flow Rate FiO2 01/08/17 10:53 98.3 89 24 117/57 Room Air 98.0 98.3 01/08/17 07:00 97 Weight Weight [ ] I.O. Intake and Output Intake and Output 01/08/17 07:00 Intake Total 1240 ml Output Total 5150 ml Balance -3910 ml Intake Oral 1240 ml Output Urine Total 5150 ml Labs Labs Laboratory Tests Test 01/07/17 11:40 01/07/17 16:40 01/07/17 20:32 01/08/17 03:45 Troponin I Quantitative 0.193ng/mL (0.000-0.055) Albumin 3.6g/dL (3.4-5.0) Glucose (Fingerstick) 335mg/dL (70-99) 338mg/dL (70-99) Sodium Level 136mmol/L (136-145) Potassium Level 4.5mmol/L (3.5-5.1) Chloride Level 96mmol/L (98-107) Carbon Dioxide Level 27mmol/L (21-32) Anion Gap 13 (6-14) Blood Urea Nitrogen 55mg/dL (8-26) Creatinine 2.1mg/dL (0.7-1.3) Estimated GFR (Cockcroft-Gault) 33.2 Glucose Level 297mg/dL (70-99) Calcium Level 9.1mg/dL (8.5-10.1) Review of Systems Constitutional: yes: alert, oriented Ears/Nose/Throat: Yes: no symptom reported Pulmonary: Yes no symptom reported Cardiovascular: Yes edema Musculoskeletal: Yes: no symptom reported Physical Exam General Appearance: no apparent distress Skin: warm Respiratory: bilateral CTA Abdomen: soft, bowel sounds present Extremities: edema Neurology: alert, oriented Assessment Assessment IMP ANTOINE-BETTER - CR DOWN TO 2.1 FROM 3.0 LE EDEMA LEFT PRETIBIAL WOUND DYSPNEA-BETTER URINARY RETENTION-BUT GOOD UO THIS AM PLAN RENAL SONO IS NEG EXCEPT FOR RETAINED URINE CONT TO HOLD YOSVANY-E AND GUERRA 2 INHIBITORS RESUME ORAL LASIX LABS IN AM BLADDER SCAN AND IF NEEDED [facility] WILL FOLLOW MAGDALENE QUINTANILLA MD Jan 08, 2017 11:18
--- NOTE | 2017-01-08 12:10 | CARD ---
APPROVED REPORT EXAM: Two-dimensional and M-mode echocardiogram with Doppler and color Doppler. Other Information Quality : FairHR: 97bpm Rhythm : NSR INDICATION Congestive Heart Failure LVEF% assessment RISK FACTORS Obesity 2D DIMENSIONS RVDd2.6 (2.9-3.5cm)Left Atrium(2D)4.6 (1.6-4.0cm) IVSd1.5 (0.7-1.1cm)Aortic Root(2D)2.6 (2.0-3.7cm) LVDd5.1 (3.9-5.9cm)LVOT Diameter2.7 (1.8-2.4cm) PWd1.5 (0.7-1.1cm)LVDs3.4 (2.5-4.0cm) FS (%) 34.4 %SV78.6 ml LVEF(%)55.0 (>50%) Aortic Valve AoV Peak Tonny.124.4cm/sAoV VTI22.8cm AO Peak GR.6.2mmHgLVOT VTI 18.05cm AO Mean GR.4mmHg Mitral Valve MV E Uptejyvq79.8cm/sMV E Peak Gr.7mmHg MV DECEL [id number] A Rfcdhkvr483.8cm/s MV E Mean Gr.4mmHgE/A Ratio0.7 MV A [id number] TDI Lateral E' P. V9.65cm/sMedial E' P. V9.27cm/s E/Lateral E'9.0E/Medial E'9.4 LEFT VENTRICLE The left ventricle is normal size. There is moderate concentric left ventricular hypertrophy. The lef t ventricular systolic function is normal and the ejection fraction is within normal range. The Eject ion Fraction is 55%. There is normal LV segmental wall motion. Transmitral Doppler flow pattern is Gr pablo I-abnormal relaxation pattern. RIGHT VENTRICLE The right ventricle is normal size. There is normal right ventricular wall thickness. The right ventr icular systolic function is normal. ATRIA The left atrium is severely dilated. The right atrium size is normal. The interatrial septum is intac t with no evidence for an atrial septal defect or patent foramen ovale as noted on 2-D or Doppler ismael ging. AORTIC VALVE The aortic valve is mildly sclerotic. The aortic valve is trileaflet. Doppler and Color Flow revealed no significant aortic regurgitation. There is no significant aortic valvular stenosis. MITRAL VALVE Mitral annular calcification is mild. The mitral valve leaflets are thickened. There is no evidence o f mitral valve prolapse. There is no mitral valve stenosis. Doppler and Color Flow revealed moderate mitral regurgitation. TRICUSPID VALVE The tricuspid valve is normal in structure and function. There is no pulmonary hypertension. PULMONIC VALVE The pulmonary valve is normal in structure and function. Doppler and Color Flow revealed no pulmonic valvular regurgitation. GREAT VESSELS The aortic root is normal in size. The ascending aorta is normal in size. The pulmonary artery is nor mal. The IVC was obscured, unable to assess. PERICARDIAL EFFUSION There is no evidence of significant pericardial effusion. Critical Notification Critical Value: No <Conclusion> The left ventricular systolic function is normal and the ejection fraction is within normal range. The Ejection Fraction is 55%. There is moderate concentric left ventricular hypertrophy. Transmitral Doppler flow pattern is Grade I-abnormal relaxation pattern. The left atrium is severely dilated. The right atrium size is normal. The aortic valve is mildly sclerotic. The aortic valve is trileaflet. Doppler and Color Flow revealed moderate mitral regurgitation. Mitral annular calcification is mild. The mitral valve leaflets are thickened. The pulmonary valve is normal in structure and function. There is no evidence of significant pericardial effusion.
[2017-01-08] MEDS: FUROSEMIDE 80 MG TABLET. PO SCH (12:39)
--- NOTE | 2017-01-08 14:40 | PDOC ---
PROGRESS NOTES Subjective Subjective Patient denied any complaints. Objective Objective Vital Signs Date Time Temp Pulse Resp B/P Pulse Ox O2 Delivery O2 Flow Rate FiO2 01/08/17 10:53 98.3 89 24 117/57 Room Air 98.0 98.3 01/08/17 07:00 97 Intake and Output 01/08/17 07:00 Intake Total 1240 ml Output Total 5150 ml Balance -3910 ml Intake Oral 1240 ml Output Urine Total 5150 ml Physical Exam Abdomen: Soft Heart: Regular rate, Normal S1, Normal S2 Extremities: Other (2+ pitting edema in lower extremities) General: Alert, Oriented X3, Cooperative HEENT: Atraumatic, EOMI Lungs: Clear to auscultation Neuro: Normal speech Psych/Mental Status: Mental status NL, Mood NL Assessment Assessment Problems Medical Problems: (1) Acute on chronic congestive heart failure Status: Acute (2) Acute renal failure Status: Acute (3) Elevated troponin Status: Acute (4) Uncontrolled diabetes mellitus Status: Acute Plan Plan of Care 1. Echocardiogram - improved EF of 55%, diastolic dysfunction, mitral insufficiency Would not recommend cardiac cath at this time due to ANTOINE 2. Agree with nephrology plan of care 3. Follow labs Comment Review of Relevant I have reviewed the following items adelina (where applicable) has been applied. Labs Laboratory Tests Test 01/06/17 22:18 01/06/17 23:05 01/07/17 03:37 01/07/17 10:49 White Blood Count 7.0x10^3/uL (4.0-11.0) 6.9x10^3/uL (4.0-11.0) Red Blood Count 4.25x10^6/uL (4.30-5.70) 4.31x10^6/uL (4.30-5.70) Hemoglobin 13.1g/dL (13.0-17.5) 13.1g/dL (13.0-17.5) Hematocrit 39.1% (39.0-53.0) 39.7% (39.0-53.0) Mean Corpuscular Volume 92fL (79-100) 92fL (79-100) Mean Corpuscular Hemoglobin 31pg (25-35) 31pg (25-35) Mean Corpuscular Hemoglobin Concent 33g/dL (31-37) 33g/dL (31-37) Red Cell Distribution Width 15.1% (11.5-14.5) 14.9% (11.5-14.5) Platelet Count 178x10^3/uL (140-400) 177x10^3/uL (140-400) Neutrophils (%) (Auto) 58% (31-73) 60% (31-73) Lymphocytes (%) (Auto) 22% (24-48) 21% (24-48) Monocytes (%) (Auto) 14% (0-9) 15% (0-9) Eosinophils (%) (Auto) 5% (0-3) 4% (0-3) Basophils (%) (Auto) 1% (0-3) 0% (0-3) Neutrophils # (Auto) 4.1x10^3uL (1.8-7.7) 4.1x10^3uL (1.8-7.7) Lymphocytes # (Auto) 1.6x10^3/uL (1.0-4.8) 1.4x10^3/uL (1.0-4.8) Monocytes # (Auto) 1.0x10^3/uL (0.0-1.1) 1.0x10^3/uL (0.0-1.1) Eosinophils # (Auto) 0.3x10^3/uL (0.0-0.7) 0.3x10^3/uL (0.0-0.7) Basophils # (Auto) 0.1x10^3/uL (0.0-0.2) 0.0x10^3/uL (0.0-0.2) Sodium Level 137mmol/L (136-145) 137mmol/L (136-145) Potassium Level 4.6mmol/L (3.5-5.1) 4.5mmol/L (3.5-5.1) Chloride Level 96mmol/L (98-107) 97mmol/L (98-107) Carbon Dioxide Level 29mmol/L (21-32) 30mmol/L (21-32) Anion Gap 12 (6-14) 10 (6-14) Blood Urea Nitrogen 55mg/dL (8-26) 55mg/dL (8-26) Creatinine 3.0mg/dL (0.7-1.3) 2.8mg/dL (0.7-1.3) Estimated GFR (Cockcroft-Gault) 22.0 23.8 BUN/Creatinine Ratio 18 (6-20) Glucose Level 226mg/dL (70-99) 202mg/dL (70-99) Calcium Level 9.4mg/dL (8.5-10.1) 9.3mg/dL (8.5-10.1) Total Bilirubin 0.4mg/dL (0.2-1.0) Aspartate Amino Transf (AST/SGOT) 25U/L (15-37) Alanine Aminotransferase (ALT/SGPT) 37U/L (16-63) Alkaline Phosphatase 72U/L (46-116) Creatine Kinase 665U/L (39-308) Creatine Kinase MB (Mass) 5.0ng/mL (0.0-3.6) Creatine Kinase MB Relative Index 0.8% (0-4) Troponin I Quantitative 0.204ng/mL (0.000-0.055) 0.197ng/mL (0.000-0.055) FC-Zht-R-Type Natriuretic Peptide 590pg/mL (0-124) Total Protein 7.6g/dL (6.4-8.2) Albumin 3.7g/dL (3.4-5.0) Albumin/Globulin Ratio 0.9 (1.0-1.7) Glucose (Fingerstick) 264mg/dL (70-99) Test 01/07/17 11:40 01/07/17 16:40 01/07/17 20:32 01/08/17 03:45 Troponin I Quantitative 0.193ng/mL (0.000-0.055) Albumin 3.6g/dL (3.4-5.0) Glucose (Fingerstick) 335mg/dL (70-99) 338mg/dL (70-99) Sodium Level 136mmol/L (136-145) Potassium Level 4.5mmol/L (3.5-5.1) Chloride Level 96mmol/L (98-107) Carbon Dioxide Level 27mmol/L (21-32) Anion Gap 13 (6-14) Blood Urea Nitrogen 55mg/dL (8-26) Creatinine 2.1mg/dL (0.7-1.3) Estimated GFR (Cockcroft-Gault) 33.2 Glucose Level 297mg/dL (70-99) Calcium Level 9.1mg/dL (8.5-10.1) Test 01/08/17 11:56 Glucose (Fingerstick) 297mg/dL (70-99) Laboratory Tests Test 01/07/17 16:40 01/07/17 20:32 01/08/17 03:45 01/08/17 11:56 Glucose (Fingerstick) 335mg/dL (70-99) 338mg/dL (70-99) 297mg/dL (70-99) Sodium Level 136mmol/L (136-145) Potassium Level 4.5mmol/L (3.5-5.1) Chloride Level 96mmol/L (98-107) Carbon Dioxide Level 27mmol/L (21-32) Anion Gap 13 (6-14) Blood Urea Nitrogen 55mg/dL (8-26) Creatinine 2.1mg/dL (0.7-1.3) Estimated GFR (Cockcroft-Gault) 33.2 Glucose Level 297mg/dL (70-99) Calcium Level 9.1mg/dL (8.5-10.1) Medications Current Medications Ondansetron HCl (Zofran) 4 mg PRN Q8HRS PRN IV NAUSEA/VOMITING; Start 01/07/17 at 00:00; Stop 01/07/17 at 23:59; Status DC Acetaminophen (Tylenol) 650 mg PRN Q4HRS PRN PO FEVER Last administered on 01/07 15:42; Start 01/07/17 at 00:00; Stop 01/07/17 at 23:59; Status DC Furosemide (Lasix) 80 mg BID92 IVP Last administered on 01/07/17 10:04; Start 01/07/17 at 09:00; Stop 01/07/17 at 12:08; Status DC Allopurinol (Zyloprim) 300 mg DAILY PO ; Start 01/07/17 at 09:00; Stop 01/07/17 at 09:34; Status DC Aspirin (Ecotrin) 81 mg DAILY PO Last administered on 01/08/17 08:25; Start at 09:00 Carvedilol (Coreg) 3.125 mg BIDWMEALS PO Last administered on 01/08/17 08:25; Start 01/07/17 at 08:00 Clopidogrel Bisulfate (Plavix) 75 mg DAILY PO Last administered on 01/08/17 08 :26; Start 01/07/17 at 09:00 Hydrochlorothiazide (Hydrodiuril) 25 mg DAILY PO ; Start 01/07/17 at 09:00; Stop 01/07/17 at 09:34; Status DC Acetaminophen/ Hydrocodone Bitart (Lortab 10/325) 1 tab QID PO ; Start 01/07/17 at 09:00; Stop 01/07/17 at 09:00; Status DC Isosorbide Mononitrate (Imdur) 30 mg TID PO ; Start 01/07/17 at 09:00; Stop at 09:34; Status DC Lisinopril (Prinivil) 20 mg DAILY PO ; Start 01/07/17 at 09:00; Stop 01/07/17 at 09:34; Status DC Nitroglycerin (Nitrostat) 0.4 mg PRN Q5MIN PRN SL CHEST PAIN; Start 01/07/17 at 02:15 Paroxetine HCl (Paxil) 20 mg DAILY PO Last administered on 01/08/17 08:26; Start 01/07/17 at 09:00 Gabapentin (Neurontin) 300 mg BID PO Last administered on 01/08/17 08:26; Start 01/07/17 at 09:00 Meloxicam (Mobic) 7.5 mg DAILY PO ; Start 01/07/17 at 09:00; Stop 01/07/17 at 09 :34; Status DC Insulin Detemir (Levemir) 135 units BID SQ ; Start 01/07/17 at 21:00; Stop 01/07 at 21:00; Status DC Ranolazine (Ranexa) 1,000 mg BID PO Last administered on 01/08/17 08:27; Start 01/07/17 at 09:00 Acetaminophen/ Hydrocodone Bitart (Lortab 10/325) 1 tab PRN Q6HRS PRN PO SEVERE PAIN Last administered on 01/07/17 21:51; Start 01/07/17 at 02:30 Dextrose (Dextrose 50%-Water Syringe) 12.5 gm PRN Q15MIN PRN IV SEE COMMENTS; Start 01/07/17 at 07:15; Stop 01/07/17 at 14:57; Status DC Isosorbide Mononitrate (Imdur) 30 mg DAILY08 PO Last administered on 01/08/17 08:25; Start 01/07/17 at 10:00 Furosemide (Lasix) 40 mg BID92 IVP Last administered on 01/08/17 08:29; Start 01/07/17 at 14:00; Stop 01/08/17 at 08:46; Status DC Insulin Detemir (Levemir) 60 units QHS SQ Last administered on 01/07/17 21:55 ; Start 01/07/17 at 15:00; Stop 01/08/17 at 08:34; Status DC Insulin Detemir (Levemir) 60 units DAILY08 SQ Last administered on 01/08/17 08 :42; Start 01/08/17 at 08:00 Dextrose (Dextrose 50%-Water Syringe) 12.5 gm PRN Q15MIN PRN IV SEE COMMENTS; Start 01/07/17 at 15:00 Insulin Aspart (Novolog) 10 units TIDAC SQ Last administered on 01/08/17 12:41 ; Start 01/07/17 at 16:30 Insulin Detemir (Levemir) 80 units QHS SQ ; Start 01/08/17 at 21:00 Furosemide (Lasix) 80 mg DAILY PO Last administered on 01/08/17 12:39; Start 01/08/17 at 12:00 Active Scripts Active Coreg (Carvedilol) 3.125 Mg Tablet 3.125 Mg PO BIDWMEALS Reported Prednisone 10 Mg Tablet 10 Mg PO UD Take 3 tablets by mouth twice a day for 3 days, then take 2 tablets by mouth twice a day for 3 days, then take 1 tablet by mouth twice a day for 3 days, then take 1 tablet by mouth daily x 3 days, then stop. Furosemide 40 Mg Tablet 1 Tab PO DAILY Aspir 81 (Aspirin) 81 Mg Tablet.dr 1 Tab PO DAILY Nitrostat (Nitroglycerin) 0.4 Mg Tab.subl 0.4 Mg SL PRN Q5MIN PRN Isosorbide Mononitrate Er (Isosorbide Mononitrate) 30 Mg Tab.er.24h 30 Mg PO TID Ranexa (Ranolazine) 1,000 Mg Tab.er.12h 1 Tab PO BID Lisinopril 20 Mg Tablet 1 Tab PO DAILY Lortab 10-325 mg Tablet (Hydrocodone/Acetaminophen) 1 Each Tablet 1 Tab PO QID Plavix (Clopidogrel Bisulfate) 75 Mg Tablet 1 Tab PO DAILY Gabapentin 300 Mg Capsule 1 Cap PO BID Hydrochlorothiazide Capsule (Hydrochlorothiazide) 12.5 Mg Capsule 25 Mg PO DAILY Paxil (Paroxetine Hcl) 20 Mg Tablet 1 Tab PO DAILY Allopurinol 100 Mg Tablet 3 Tab PO DAILY Nabumetone 500 Mg Tablet 1 Tab PO BID Humulin N (Nph, Human Insulin Isophane) 100 Unit/1 Ml Vial 90 Unit SQ TID Vitals/I & O Vital Sign - Last 24 Hours 01/07/17 01/07/17 01/07/17 01/07/17 15:00 18:12 19:30 20:00 Temp 98.6 97.7 98.6 97.7 Pulse 94 94 98 Resp 18 18 B/P 111/64 111/64 109/65 Pulse Ox 92 96 O2 Delivery Room Air Room Air Room Air 01/07/17 01/07/17 01/07/17 01/07/17 20:57 21:51 23:06 23:30 Temp 98.1 98.1 Pulse 92 96 Resp 20 20 16 B/P 109/65 110/63 Pulse Ox 96 O2 Delivery Room Air Room Air 01/08/17 01/08/17 01/08/17 01/08/17 03:35 07:00 08:00 08:25 Temp 98.0 98.5 98.0 98.5 Pulse 92 65 93 Resp 18 18 B/P 114/62 135/74 135/74 Pulse Ox 95 97 O2 Delivery Room Air Room Air Room Air 01/08/17 01/08/17 01/08/17 08:25 08:27 10:53 Temp 98.3 98.3 Pulse 91 89 89 Resp 24 B/P 135/74 135/74 117/57 O2 Delivery Room Air O2 Flow Rate 98.0 Intake and Output 01/07/17 01/07/17 01/08/17 15:00 23:00 07:00 Intake Total 1000 ml 240 ml Output Total 4750 ml 400 ml Balance -3750 ml -160 ml TRISTIN CORDOVA MD Jan 08, 2017 14:40
[2017-01-08 15:18] VITALS: BP 111/61
[2017-01-08 19:43] VITALS: BP 123/69
[2017-01-08] MEDS: HYDROCODONE/APAP 10/325 TABLET. PO PRN (22:57)
[2017-01-08 23:42] VITALS: BP 126/66
[2017-01-09 03:22] VITALS: BP 118/59
[2017-01-09 06:25] LABS: CALCIUM 9.1 mg/dL (8.5-10.1); CREATININE 1.7 mg/dL (0.7-1.3); GFR 42.4; POTASSIUM 4.2 mmol/L (3.5-5.1)
[2017-01-09 07:00] VITALS: BP_SYST 133; BP_SYST 143; BP_DIAS 80; BP_DIAS 97
[2017-01-09] MEDS: ISOSORBIDE MONONITRATE ER 30 MG TAB.ER.24H PO SCH (09:20)
[2017-01-09] MEDS: PAROXETINE 20 MG TABLET. PO SCH (09:21)
[2017-01-09] MEDS: GABAPENTIN 300 MG CAPSULE. PO SCH ×2 (09:21→20:34)
[2017-01-09] MEDS: ASPIRIN ENTERIC COATED 81 MG TABLET.DR. PO SCH (09:21)
[2017-01-09] MEDS: CLOPIDOGREL BISULFATE 75 MG TABLET PO SCH (09:21)
[2017-01-09] MEDS: FUROSEMIDE 80 MG TABLET. PO SCH ×2 (09:21→18:13)
[2017-01-09] MEDS: CARVEDILOL 3.125 MG TABLET. PO SCH ×2 (09:21→18:13)
[2017-01-09] MEDS: RANOLAZINE 500 MG TAB.ER.12H PO SCH ×2 (09:22→20:35)
[2017-01-09] MEDS: INSULIN DETEMIR 300 UNITS/3 ML INSULN.PEN. SQ SCH ×2 (09:36→20:41)
[2017-01-09] MEDS: INSULIN ASPART 300 UNITS/3 ML INSULN.PEN SQ SCH ×3 (09:37→18:25)
[2017-01-09 11:00] VITALS: BP 146/77
[2017-01-09] MEDS ORDERED: INSULIN DETEMIR 300 UNITS/3 ML INSULN.PEN. SQ ONE (11:30)
--- NOTE | 2017-01-09 11:32 | PDOC ---
Provider Note Provider Note good output, no residual per scanner- vss, renal fx better despite diuresis of 20 lbs per wt- likely better re dc of acei and mobic, cough/dyspnea gone too- still edema, bid lasix today, culture/treat L leg wound re SA likely now LATRICIA SOLORZANO MD Jan 09, 2017 11:32
--- NOTE | 2017-01-09 12:31 | PDOC ---
PROGRESS NOTES Subjective Subjective SEEN IN FOLLOW UP OF ARF Objective Objective Vital Signs Date Time Temp Pulse Resp B/P Pulse Ox O2 Delivery O2 Flow Rate FiO2 01/09/17 11:00 97.7 88 20 146/77 92 Room Air 97.7 01/08/17 10:53 98.0 Intake and Output 01/09/17 07:00 Intake Total 2400 ml Output Total 4825 ml Balance -2425 ml Intake Oral 2400 ml Output Urine Total 4825 ml Physical Exam Abdomen: Normal bowel sounds, Soft, No tenderness, No hepatosplenomegaly, No masses Heart: Regular rate, Normal S1, Normal S2, No murmurs, Gallops Extremities: No clubbing, No cyanosis, No edema, Normal pulses, No tenderness/ swelling General: Alert, Oriented X3, Cooperative, No acute distress Lungs: Clear to auscultation, Normal air movement Psych/Mental Status: Mental status NL, Mood NL Diagnosis RENAL FAILURE: Acute Assessment Assessment Problems Medical Problems: (1) Acute on chronic congestive heart failure Status: Acute (2) Acute renal failure Status: Acute (3) Elevated troponin Status: Acute (4) Uncontrolled diabetes mellitus Status: Acute Plan Plan of Care IMPROVING RENAL FUNCTION. HOME OK WITH RENAL WITH OFFICE FOLLOW UP WITH DR QUINTANILLA Comment Review of Relevant I have reviewed the following items adelina (where applicable) has been applied. Labs Laboratory Tests Test 01/07/17 16:40 01/07/17 20:32 01/08/17 03:45 01/08/17 08:00 Glucose (Fingerstick) 335mg/dL (70-99) 338mg/dL (70-99) 256mg/dL (70-99) Sodium Level 136mmol/L (136-145) Potassium Level 4.5mmol/L (3.5-5.1) Chloride Level 96mmol/L (98-107) Carbon Dioxide Level 27mmol/L (21-32) Anion Gap 13 (6-14) Blood Urea Nitrogen 55mg/dL (8-26) Creatinine 2.1mg/dL (0.7-1.3) Estimated GFR (Cockcroft-Gault) 33.2 Glucose Level 297mg/dL (70-99) Calcium Level 9.1mg/dL (8.5-10.1) Test 01/08/17 11:56 01/08/17 16:47 01/08/17 20:37 01/09/17 04:30 Glucose (Fingerstick) 297mg/dL (70-99) 346mg/dL (70-99) 323mg/dL (70-99) Sodium Level 138mmol/L (136-145) Potassium Level 4.2mmol/L (3.5-5.1) Chloride Level 97mmol/L (98-107) Carbon Dioxide Level 31mmol/L (21-32) Anion Gap 10 (6-14) Blood Urea Nitrogen 47mg/dL (8-26) Creatinine 1.7mg/dL (0.7-1.3) Estimated GFR (Cockcroft-Gault) 42.4 Glucose Level 269mg/dL (70-99) Calcium Level 9.1mg/dL (8.5-10.1) Magnesium Level 1.8mg/dL (1.8-2.4) Test 01/09/17 07:36 01/09/17 12:00 Glucose (Fingerstick) 212mg/dL (70-99) 248mg/dL (70-99) Laboratory Tests Test 01/08/17 16:47 01/08/17 20:37 01/09/17 04:30 01/09/17 07:36 Glucose (Fingerstick) 346mg/dL (70-99) 323mg/dL (70-99) 212mg/dL (70-99) Sodium Level 138mmol/L (136-145) Potassium Level 4.2mmol/L (3.5-5.1) Chloride Level 97mmol/L (98-107) Carbon Dioxide Level 31mmol/L (21-32) Anion Gap 10 (6-14) Blood Urea Nitrogen 47mg/dL (8-26) Creatinine 1.7mg/dL (0.7-1.3) Estimated GFR (Cockcroft-Gault) 42.4 Glucose Level 269mg/dL (70-99) Calcium Level 9.1mg/dL (8.5-10.1) Magnesium Level 1.8mg/dL (1.8-2.4) Test 01/09/17 12:00 Glucose (Fingerstick) 248mg/dL (70-99) Medications Current Medications Ondansetron HCl (Zofran) 4 mg PRN Q8HRS PRN IV NAUSEA/VOMITING; Start 01/07/17 at 00:00; Stop 01/07/17 at 23:59; Status DC Acetaminophen (Tylenol) 650 mg PRN Q4HRS PRN PO FEVER Last administered on 01/07 15:42; Start 01/07/17 at 00:00; Stop 01/07/17 at 23:59; Status DC Furosemide (Lasix) 80 mg BID92 IVP Last administered on 01/07/17 10:04; Start 01/07/17 at 09:00; Stop 01/07/17 at 12:08; Status DC Allopurinol (Zyloprim) 300 mg DAILY PO ; Start 01/07/17 at 09:00; Stop 01/07/17 at 09:34; Status DC Aspirin (Ecotrin) 81 mg DAILY PO Last administered on 01/09/17 09:21; Start at 09:00 Carvedilol (Coreg) 3.125 mg BIDWMEALS PO Last administered on 01/09/17 09:21; Start 01/07/17 at 08:00 Clopidogrel Bisulfate (Plavix) 75 mg DAILY PO Last administered on 01/09/17 09 :21; Start 01/07/17 at 09:00 Hydrochlorothiazide (Hydrodiuril) 25 mg DAILY PO ; Start 01/07/17 at 09:00; Stop 01/07/17 at 09:34; Status DC Acetaminophen/ Hydrocodone Bitart (Lortab 10/325) 1 tab QID PO ; Start 01/07/17 at 09:00; Stop 01/07/17 at 09:00; Status DC Isosorbide Mononitrate (Imdur) 30 mg TID PO ; Start 01/07/17 at 09:00; Stop at 09:34; Status DC Lisinopril (Prinivil) 20 mg DAILY PO ; Start 01/07/17 at 09:00; Stop 01/07/17 at 09:34; Status DC Nitroglycerin (Nitrostat) 0.4 mg PRN Q5MIN PRN SL CHEST PAIN; Start 01/07/17 at 02:15 Paroxetine HCl (Paxil) 20 mg DAILY PO Last administered on 01/09/17 09:21; Start 01/07/17 at 09:00 Gabapentin (Neurontin) 300 mg BID PO Last administered on 01/09/17 09:21; Start 01/07/17 at 09:00 Meloxicam (Mobic) 7.5 mg DAILY PO ; Start 01/07/17 at 09:00; Stop 01/07/17 at 09 :34; Status DC Insulin Detemir (Levemir) 135 units BID SQ ; Start 01/07/17 at 21:00; Stop 01/07 at 21:00; Status DC Ranolazine (Ranexa) 1,000 mg BID PO Last administered on 01/09/17 09:22; Start 01/07/17 at 09:00 Acetaminophen/ Hydrocodone Bitart (Lortab 10/325) 1 tab PRN Q6HRS PRN PO SEVERE PAIN Last administered on 01/08/17 22:57; Start 01/07/17 at 02:30 Dextrose (Dextrose 50%-Water Syringe) 12.5 gm PRN Q15MIN PRN IV SEE COMMENTS; Start 01/07/17 at 07:15; Stop 01/07/17 at 14:57; Status DC Isosorbide Mononitrate (Imdur) 30 mg DAILY08 PO Last administered on 01/09/17 09:20; Start 01/07/17 at 10:00 Furosemide (Lasix) 40 mg BID92 IVP Last administered on 01/08/17 08:29; Start 01/07/17 at 14:00; Stop 01/08/17 at 08:46; Status DC Insulin Detemir (Levemir) 60 units QHS SQ Last administered on 01/07/17 21:55 ; Start 01/07/17 at 15:00; Stop 01/08/17 at 08:34; Status DC Insulin Detemir (Levemir) 60 units DAILY08 SQ Last administered on 01/09/17 09 :36; Start 01/08/17 at 08:00; Stop 01/09/17 at 11:21; Status DC Dextrose (Dextrose 50%-Water Syringe) 12.5 gm PRN Q15MIN PRN IV SEE COMMENTS; Start 01/07/17 at 15:00 Insulin Aspart (Novolog) 10 units TIDAC SQ Last administered on 01/09/17 12:26 ; Start 01/07/17 at 16:30 Insulin Detemir (Levemir) 80 units QHS SQ Last administered on 01/08/17 21:26 ; Start 01/08/17 at 21:00 Furosemide (Lasix) 80 mg DAILY PO Last administered on 01/09/17 09:21; Start 01/08/17 at 12:00; Stop 01/09/17 at 11:31; Status DC Insulin Detemir (Levemir) 80 units DAILY08 SQ ; Start 01/10/17 at 08:00 Insulin Detemir (Levemir) 20 units 1X ONCE SQ Last administered on 01/09/17 12:27; Start 01/09/17 at 11:30; Stop 01/09/17 at 11:31; Status DC Furosemide (Lasix) 80 mg BID76 PO ; Start 01/09/17 at 18:00 Mupirocin (Bactroban) 1 jonnie TID TP ; Start 01/09/17 at 14:00 Cephalexin HCl (Keflex) 500 mg TID PO ; Start 01/09/17 at 12:30 Active Scripts Active Coreg (Carvedilol) 3.125 Mg Tablet 3.125 Mg PO BIDWMEALS Reported Prednisone 10 Mg Tablet 10 Mg PO UD Take 3 tablets by mouth twice a day for 3 days, then take 2 tablets by mouth twice a day for 3 days, then take 1 tablet by mouth twice a day for 3 days, then take 1 tablet by mouth daily x 3 days, then stop. Furosemide 40 Mg Tablet 1 Tab PO DAILY Aspir 81 (Aspirin) 81 Mg Tablet.dr 1 Tab PO DAILY Nitrostat (Nitroglycerin) 0.4 Mg Tab.subl 0.4 Mg SL PRN Q5MIN PRN Isosorbide Mononitrate Er (Isosorbide Mononitrate) 30 Mg Tab.er.24h 30 Mg PO TID Ranexa (Ranolazine) 1,000 Mg Tab.er.12h 1 Tab PO BID Lisinopril 20 Mg Tablet 1 Tab PO DAILY Lortab 10-325 mg Tablet (Hydrocodone/Acetaminophen) 1 Each Tablet 1 Tab PO QID Plavix (Clopidogrel Bisulfate) 75 Mg Tablet 1 Tab PO DAILY Gabapentin 300 Mg Capsule 1 Cap PO BID Hydrochlorothiazide Capsule (Hydrochlorothiazide) 12.5 Mg Capsule 25 Mg PO DAILY Paxil (Paroxetine Hcl) 20 Mg Tablet 1 Tab PO DAILY Allopurinol 100 Mg Tablet 3 Tab PO DAILY Nabumetone 500 Mg Tablet 1 Tab PO BID Humulin N (Nph, Human Insulin Isophane) 100 Unit/1 Ml Vial 90 Unit SQ TID Vitals/I & O Vital Sign - Last 24 Hours 01/08/17 01/08/17 01/08/17 01/08/17 15:18 17:15 19:43 20:00 Temp 98.5 98.6 98.5 98.6 Pulse 80 80 92 Resp 20 18 B/P 111/61 111/61 123/69 Pulse Ox 97 98 O2 Delivery Room Air Room Air Room Air 01/08/17 01/08/17 01/08/17 01/08/17 21:11 22:57 23:42 23:58 Temp 98.6 98.6 Pulse 96 96 Resp 18 B/P 123/69 126/66 Pulse Ox 99 O2 Delivery Room Air Room Air Room Air 01/09/17 01/09/17 01/09/17 01/09/17 03:22 07:00 09:20 09:21 Temp 97.8 98.6 97.8 98.6 Pulse 86 83 83 83 Resp 18 20 B/P 118/59 133/80 133/80 133/80 Pulse Ox 96 93 O2 Delivery Room Air Room Air 01/09/17 01/09/17 09:22 11:00 Temp 97.7 97.7 Pulse 83 88 Resp 20 B/P 133/80 146/77 Pulse Ox 92 O2 Delivery Room Air Intake and Output 01/08/17 01/08/17 01/09/17 15:00 23:00 07:00 Intake Total 2050 ml 350 ml Output Total 3775 ml 1050 ml Balance -1725 ml -700 ml ALISHA WINTERS MD Jan 09, 2017 12:31
[2017-01-09 15:00] VITALS: BP_SYST 127; BP_SYST 155; BP_DIAS 59; BP_DIAS 80
--- NOTE | 2017-01-09 15:19 | PDOC ---
PROGRESS NOTES Subjective Subjective The patient feels much better today. He is able to ambulate without significant dyspnea. Objective Objective Vital Signs Date Time Temp Pulse Resp B/P Pulse Ox O2 Delivery O2 Flow Rate FiO2 01/09/17 11:00 97.7 88 20 146/77 92 Room Air 97.7 01/08/17 10:53 98.0 Intake and Output 01/09/17 07:00 Intake Total 2400 ml Output Total 4825 ml Balance -2425 ml Intake Oral 2400 ml Output Urine Total 4825 ml Physical Exam Physical Exam Moving air better, less edema. Assessment Assessment Patient's CHF appears to be improving. At this point this patient's problems seeing to be mostly secondary to his renal problems and infection. I agree with present plan. Problems Medical Problems: (1) Acute on chronic congestive heart failure Status: Acute (2) Acute renal failure Status: Acute (3) Elevated troponin Status: Acute (4) Uncontrolled diabetes mellitus Status: Acute Comment Review of Relevant I have reviewed the following items adelina (where applicable) has been applied. Labs Laboratory Tests Test 01/07/17 16:40 01/07/17 20:32 01/08/17 03:45 01/08/17 08:00 Glucose (Fingerstick) 335mg/dL (70-99) 338mg/dL (70-99) 256mg/dL (70-99) Sodium Level 136mmol/L (136-145) Potassium Level 4.5mmol/L (3.5-5.1) Chloride Level 96mmol/L (98-107) Carbon Dioxide Level 27mmol/L (21-32) Anion Gap 13 (6-14) Blood Urea Nitrogen 55mg/dL (8-26) Creatinine 2.1mg/dL (0.7-1.3) Estimated GFR (Cockcroft-Gault) 33.2 Glucose Level 297mg/dL (70-99) Calcium Level 9.1mg/dL (8.5-10.1) Test 01/08/17 11:56 01/08/17 16:47 01/08/17 20:37 01/09/17 04:30 Glucose (Fingerstick) 297mg/dL (70-99) 346mg/dL (70-99) 323mg/dL (70-99) Sodium Level 138mmol/L (136-145) Potassium Level 4.2mmol/L (3.5-5.1) Chloride Level 97mmol/L (98-107) Carbon Dioxide Level 31mmol/L (21-32) Anion Gap 10 (6-14) Blood Urea Nitrogen 47mg/dL (8-26) Creatinine 1.7mg/dL (0.7-1.3) Estimated GFR (Cockcroft-Gault) 42.4 Glucose Level 269mg/dL (70-99) Calcium Level 9.1mg/dL (8.5-10.1) Magnesium Level 1.8mg/dL (1.8-2.4) Test 01/09/17 07:36 01/09/17 12:00 Glucose (Fingerstick) 212mg/dL (70-99) 248mg/dL (70-99) Laboratory Tests Test 01/08/17 16:47 01/08/17 20:37 01/09/17 04:30 01/09/17 07:36 Glucose (Fingerstick) 346mg/dL (70-99) 323mg/dL (70-99) 212mg/dL (70-99) Sodium Level 138mmol/L (136-145) Potassium Level 4.2mmol/L (3.5-5.1) Chloride Level 97mmol/L (98-107) Carbon Dioxide Level 31mmol/L (21-32) Anion Gap 10 (6-14) Blood Urea Nitrogen 47mg/dL (8-26) Creatinine 1.7mg/dL (0.7-1.3) Estimated GFR (Cockcroft-Gault) 42.4 Glucose Level 269mg/dL (70-99) Calcium Level 9.1mg/dL (8.5-10.1) Magnesium Level 1.8mg/dL (1.8-2.4) Test 01/09/17 12:00 Glucose (Fingerstick) 248mg/dL (70-99) Medications Current Medications Ondansetron HCl (Zofran) 4 mg PRN Q8HRS PRN IV NAUSEA/VOMITING; Start 01/07/17 at 00:00; Stop 01/07/17 at 23:59; Status DC Acetaminophen (Tylenol) 650 mg PRN Q4HRS PRN PO FEVER Last administered on 01/07t 15:42; Start 01/07/17 at 00:00; Stop 01/07/17 at 23:59; Status DC Furosemide (Lasix) 80 mg BID92 IVP Last administered on 01/07/17 10:04; Start 01/07/17 at 09:00; Stop 01/07/17 at 12:08; Status DC Allopurinol (Zyloprim) 300 mg DAILY PO ; Start 01/07/17 at 09:00; Stop 01/07/17 at 09:34; Status DC Aspirin (Ecotrin) 81 mg DAILY PO Last administered on 01/09/17 09:21; Start at 09:00 Carvedilol (Coreg) 3.125 mg BIDWMEALS PO Last administered on 01/09/17 09:21; Start 01/07/17 at 08:00 Clopidogrel Bisulfate (Plavix) 75 mg DAILY PO Last administered on 01/09/17 09 :21; Start 01/07/17 at 09:00 Hydrochlorothiazide (Hydrodiuril) 25 mg DAILY PO ; Start 01/07/17 at 09:00; Stop 01/07/17 at 09:34; Status DC Acetaminophen/ Hydrocodone Bitart (Lortab 10/325) 1 tab QID PO ; Start 01/07/17 at 09:00; Stop 01/07/17 at 09:00; Status DC Isosorbide Mononitrate (Imdur) 30 mg TID PO ; Start 01/07/17 at 09:00; Stop at 09:34; Status DC Lisinopril (Prinivil) 20 mg DAILY PO ; Start 01/07/17 at 09:00; Stop 01/07/17 at 09:34; Status DC Nitroglycerin (Nitrostat) 0.4 mg PRN Q5MIN PRN SL CHEST PAIN; Start 01/07/17 at 02:15 Paroxetine HCl (Paxil) 20 mg DAILY PO Last administered on 01/09/17 09:21; Start 01/07/17 at 09:00 Gabapentin (Neurontin) 300 mg BID PO Last administered on 01/09/17 09:21; Start 01/07/17 at 09:00 Meloxicam (Mobic) 7.5 mg DAILY PO ; Start 01/07/17 at 09:00; Stop 01/07/17 at 09 :34; Status DC Insulin Detemir (Levemir) 135 units BID SQ ; Start 01/07/17 at 21:00; Stop 01/07 at 21:00; Status DC Ranolazine (Ranexa) 1,000 mg BID PO Last administered on 01/09/17 09:22; Start 01/07/17 at 09:00 Acetaminophen/ Hydrocodone Bitart (Lortab 10/325) 1 tab PRN Q6HRS PRN PO SEVERE PAIN Last administered on 01/08/17 22:57; Start 01/07/17 at 02:30 Dextrose (Dextrose 50%-Water Syringe) 12.5 gm PRN Q15MIN PRN IV SEE COMMENTS; Start 01/07/17 at 07:15; Stop 01/07/17 at 14:57; Status DC Isosorbide Mononitrate (Imdur) 30 mg DAILY08 PO Last administered on 01/09/17 09:20; Start 01/07/17 at 10:00 Furosemide (Lasix) 40 mg BID92 IVP Last administered on 01/08/17 08:29; Start 01/07/17 at 14:00; Stop 01/08/17 at 08:46; Status DC Insulin Detemir (Levemir) 60 units QHS SQ Last administered on 01/07/17 21:55 ; Start 01/07/17 at 15:00; Stop 01/08/17 at 08:34; Status DC Insulin Detemir (Levemir) 60 units DAILY08 SQ Last administered on 01/09/17 09 :36; Start 01/08/17 at 08:00; Stop 01/09/17 at 11:21; Status DC Dextrose (Dextrose 50%-Water Syringe) 12.5 gm PRN Q15MIN PRN IV SEE COMMENTS; Start 01/07/17 at 15:00 Insulin Aspart (Novolog) 10 units TIDAC SQ Last administered on 01/09/17 12:26 ; Start 01/07/17 at 16:30 Insulin Detemir (Levemir) 80 units QHS SQ Last administered on 01/08/17 21:26 ; Start 01/08/17 at 21:00 Furosemide (Lasix) 80 mg DAILY PO Last administered on 01/09/17 09:21; Start 01/08/17 at 12:00; Stop 01/09/17 at 11:31; Status DC Insulin Detemir (Levemir) 80 units DAILY08 SQ ; Start 01/10/17 at 08:00 Insulin Detemir (Levemir) 20 units 1X ONCE SQ Last administered on 01/09/17 12:27; Start 01/09/17 at 11:30; Stop 01/09/17 at 11:31; Status DC Furosemide (Lasix) 80 mg BID76 PO ; Start 01/09/17 at 18:00 Mupirocin (Bactroban) 1 jonnie TID TP ; Start 01/09/17 at 14:00 Cephalexin HCl (Keflex) 500 mg TID PO ; Start 01/09/17 at 12:30 Active Scripts Active Coreg (Carvedilol) 3.125 Mg Tablet 3.125 Mg PO BIDWMEALS Reported Prednisone 10 Mg Tablet 10 Mg PO UD Take 3 tablets by mouth twice a day for 3 days, then take 2 tablets by mouth twice a day for 3 days, then take 1 tablet by mouth twice a day for 3 days, then take 1 tablet by mouth daily x 3 days, then stop. Furosemide 40 Mg Tablet 1 Tab PO DAILY Aspir 81 (Aspirin) 81 Mg Tablet.dr 1 Tab PO DAILY Nitrostat (Nitroglycerin) 0.4 Mg Tab.subl 0.4 Mg SL PRN Q5MIN PRN Isosorbide Mononitrate Er (Isosorbide Mononitrate) 30 Mg Tab.er.24h 30 Mg PO TID Ranexa (Ranolazine) 1,000 Mg Tab.er.12h 1 Tab PO BID Lisinopril 20 Mg Tablet 1 Tab PO DAILY Lortab 10-325 mg Tablet (Hydrocodone/Acetaminophen) 1 Each Tablet 1 Tab PO QID Plavix (Clopidogrel Bisulfate) 75 Mg Tablet 1 Tab PO DAILY Gabapentin 300 Mg Capsule 1 Cap PO BID Hydrochlorothiazide Capsule (Hydrochlorothiazide) 12.5 Mg Capsule 25 Mg PO DAILY Paxil (Paroxetine Hcl) 20 Mg Tablet 1 Tab PO DAILY Allopurinol 100 Mg Tablet 3 Tab PO DAILY Nabumetone 500 Mg Tablet 1 Tab PO BID Humulin N (Nph, Human Insulin Isophane) 100 Unit/1 Ml Vial 90 Unit SQ TID Vitals/I & O Vital Sign - Last 24 Hours 01/08/17 01/08/17 01/08/17 01/08/17 15:18 17:15 19:43 20:00 Temp 98.5 98.6 98.5 98.6 Pulse 80 80 92 Resp 20 18 B/P 111/61 111/61 123/69 Pulse Ox 97 98 O2 Delivery Room Air Room Air Room Air 01/08/17 01/08/17 01/08/17 01/08/17 21:11 22:57 23:42 23:58 Temp 98.6 98.6 Pulse 96 96 Resp 18 B/P 123/69 126/66 Pulse Ox 99 O2 Delivery Room Air Room Air Room Air 01/09/17 01/09/17 01/09/17 01/09/17 03:22 07:00 09:20 09:21 Temp 97.8 98.6 97.8 98.6 Pulse 86 83 83 83 Resp 18 20 B/P 118/59 133/80 133/80 133/80 Pulse Ox 96 93 O2 Delivery Room Air Room Air 01/09/17 01/09/17 09:22 11:00 Temp 97.7 97.7 Pulse 83 88 Resp 20 B/P 133/80 146/77 Pulse Ox 92 O2 Delivery Room Air Intake and Output 01/08/17 01/08/17 01/09/17 15:00 23:00 07:00 Intake Total 2050 ml 350 ml Output Total 3775 ml 1050 ml Balance -1725 ml -700 ml TRISTIN CORDOVA MD Jan 09, 2017 15:19
[2017-01-09] MEDS: MUPIROCIN 2 % TOPICAL CREAM 15GM TUBE. TP SCH ×2 (15:25→20:42)
[2017-01-09] MEDS: CEPHALEXIN 250 MG CAPSULE. PO SCH ×2 (15:26→20:34)
[2017-01-09 19:00] VITALS: BP 138/72
[2017-01-09 23:00] VITALS: BP 134/74
[2017-01-10 03:00] VITALS: BP 117/60
[2017-01-10] MEDS: FUROSEMIDE 80 MG TABLET. PO SCH (06:06)
[2017-01-10 07:00] VITALS: BP 124/77
[2017-01-10] MEDS ORDERED: INSULIN DETEMIR 300 UNITS/3 ML INSULN.PEN. SQ SCH ×2 (08:00→21:00)
--- NOTE | 2017-01-10 08:54 | PDOC ---
Provider Note Provider Note vss, still vigorous diuresis, edema and wt less- lab pending re renal , glucose high despite high dose levemir- wound cult pending, on keflex re L leg wound for now- will reduce po lasix to daily now,, check lab- will need culture result to see if mrsa or mssa- home 01/11 likely if labs stil;LATRICIA Todd MD Jan 10, 2017 08:54
[2017-01-10] MEDS: RANOLAZINE 500 MG TAB.ER.12H PO SCH ×2 (09:07→21:42)
[2017-01-10] MEDS: CEPHALEXIN 250 MG CAPSULE. PO SCH ×3 (09:09→21:42)
[2017-01-10] MEDS: ISOSORBIDE MONONITRATE ER 30 MG TAB.ER.24H PO SCH (09:09)
[2017-01-10] MEDS: GABAPENTIN 300 MG CAPSULE. PO SCH ×2 (09:10→21:41)
[2017-01-10] MEDS: ASPIRIN ENTERIC COATED 81 MG TABLET.DR. PO SCH (09:10)
[2017-01-10] MEDS: CARVEDILOL 3.125 MG TABLET. PO SCH ×2 (09:10→17:00)
[2017-01-10] MEDS: PAROXETINE 20 MG TABLET. PO SCH (09:10)
[2017-01-10] MEDS: CLOPIDOGREL BISULFATE 75 MG TABLET PO SCH (09:11)
[2017-01-10] MEDS: MUPIROCIN 2 % TOPICAL CREAM 15GM TUBE. TP SCH ×3 (09:12→21:53)
[2017-01-10] MEDS: INSULIN DETEMIR 300 UNITS/3 ML INSULN.PEN. SQ SCH (09:23)
[2017-01-10 09:45] LABS: CALCIUM 9.2 mg/dL (8.5-10.1); CREATININE 1.6 mg/dL (0.7-1.3); GFR 45.4
[2017-01-10 11:00] VITALS: BP 147/78
[2017-01-10] MEDS: INSULIN ASPART 300 UNITS/3 ML INSULN.PEN SQ SCH ×2 (12:21→16:30)
[2017-01-10 15:00] VITALS: BP 126/70
--- NOTE | 2017-01-10 15:43 | PDOC ---
PROGRESS NOTES Subjective Subjective Patient is complaining of a cough Objective Objective Vital Signs Date Time Temp Pulse Resp B/P Pulse Ox O2 Delivery O2 Flow Rate FiO2 01/10/17 11:00 98.1 91 18 147/78 92 Room Air 98.1 01/08/17 10:53 98.0 Intake and Output 01/10/17 07:00 Intake Total 1600 ml Output Total 5550 ml Balance -3950 ml Intake Oral 1600 ml Output Urine Total 5550 ml Physical Exam Physical Exam No significant changes in cardiac exam. No further decreasing edema. Assessment Assessment Patient is a the same however he had problems with a cough and breathing earlier. The cultures are still pending. I agree with present plan to keep the patient here today. Problems Medical Problems: (1) Acute on chronic congestive heart failure Status: Acute (2) Acute renal failure Status: Acute (3) Elevated troponin Status: Acute (4) Uncontrolled diabetes mellitus Status: Acute Comment Review of Relevant I have reviewed the following items adelina (where applicable) has been applied. Labs Laboratory Tests Test 01/08/17 16:47 01/08/17 20:37 01/09/17 04:30 01/09/17 07:36 Glucose (Fingerstick) 346mg/dL (70-99) 323mg/dL (70-99) 212mg/dL (70-99) Sodium Level 138mmol/L (136-145) Potassium Level 4.2mmol/L (3.5-5.1) Chloride Level 97mmol/L (98-107) Carbon Dioxide Level 31mmol/L (21-32) Anion Gap 10 (6-14) Blood Urea Nitrogen 47mg/dL (8-26) Creatinine 1.7mg/dL (0.7-1.3) Estimated GFR (Cockcroft-Gault) 42.4 Glucose Level 269mg/dL (70-99) Calcium Level 9.1mg/dL (8.5-10.1) Magnesium Level 1.8mg/dL (1.8-2.4) Test 01/09/17 12:00 01/09/17 17:07 01/09/17 19:59 01/10/17 09:05 Glucose (Fingerstick) 248mg/dL (70-99) 299mg/dL (70-99) 329mg/dL (70-99) Sodium Level 141mmol/L (136-145) Potassium Level 4.0mmol/L (3.5-5.1) Chloride Level 96mmol/L (98-107) Carbon Dioxide Level 32mmol/L (21-32) Anion Gap 13 (6-14) Blood Urea Nitrogen 37mg/dL (8-26) Creatinine 1.6mg/dL (0.7-1.3) Estimated GFR (Cockcroft-Gault) 45.4 Glucose Level 261mg/dL (70-99) Calcium Level 9.2mg/dL (8.5-10.1) Laboratory Tests Test 01/09/17 17:07 01/09/17 19:59 01/10/17 09:05 Glucose (Fingerstick) 299mg/dL (70-99) 329mg/dL (70-99) Sodium Level 141mmol/L (136-145) Potassium Level 4.0mmol/L (3.5-5.1) Chloride Level 96mmol/L (98-107) Carbon Dioxide Level 32mmol/L (21-32) Anion Gap 13 (6-14) Blood Urea Nitrogen 37mg/dL (8-26) Creatinine 1.6mg/dL (0.7-1.3) Estimated GFR (Cockcroft-Gault) 45.4 Glucose Level 261mg/dL (70-99) Calcium Level 9.2mg/dL (8.5-10.1) Medications Current Medications Ondansetron HCl (Zofran) 4 mg PRN Q8HRS PRN IV NAUSEA/VOMITING; Start 01/07/17 at 00:00; Stop 01/07/17 at 23:59; Status DC Acetaminophen (Tylenol) 650 mg PRN Q4HRS PRN PO FEVER Last administered on 01/07 15:42; Start 01/07/17 at 00:00; Stop 01/07/17 at 23:59; Status DC Furosemide (Lasix) 80 mg BID92 IVP Last administered on 01/07/17 10:04; Start 01/07/17 at 09:00; Stop 01/07/17 at 12:08; Status DC Allopurinol (Zyloprim) 300 mg DAILY PO ; Start 01/07/17 at 09:00; Stop 01/07/17 at 09:34; Status DC Aspirin (Ecotrin) 81 mg DAILY PO Last administered on 01/10/17 09:10; Start at 09:00 Carvedilol (Coreg) 3.125 mg BIDWMEALS PO Last administered on 01/10/17 09:10; Start 01/07/17 at 08:00 Clopidogrel Bisulfate (Plavix) 75 mg DAILY PO Last administered on 01/10/17 09 :11; Start 01/07/17 at 09:00 Hydrochlorothiazide (Hydrodiuril) 25 mg DAILY PO ; Start 01/07/17 at 09:00; Stop 01/07/17 at 09:34; Status DC Acetaminophen/ Hydrocodone Bitart (Lortab 10/325) 1 tab QID PO ; Start 01/07/17 at 09:00; Stop 01/07/17 at 09:00; Status DC Isosorbide Mononitrate (Imdur) 30 mg TID PO ; Start 01/07/17 at 09:00; Stop at 09:34; Status DC Lisinopril (Prinivil) 20 mg DAILY PO ; Start 01/07/17 at 09:00; Stop 01/07/17 at 09:34; Status DC Nitroglycerin (Nitrostat) 0.4 mg PRN Q5MIN PRN SL CHEST PAIN; Start 01/07/17 at 02:15 Paroxetine HCl (Paxil) 20 mg DAILY PO Last administered on 01/10/17 09:10; Start 01/07/17 at 09:00 Gabapentin (Neurontin) 300 mg BID PO Last administered on 01/10/17 09:10; Start 01/07/17 at 09:00 Meloxicam (Mobic) 7.5 mg DAILY PO ; Start 01/07/17 at 09:00; Stop 01/07/17 at 09 :34; Status DC Insulin Detemir (Levemir) 135 units BID SQ ; Start 01/07/17 at 21:00; Stop 01/07 at 21:00; Status DC Ranolazine (Ranexa) 1,000 mg BID PO Last administered on 01/10/17 09:07; Start 01/07/17 at 09:00 Acetaminophen/ Hydrocodone Bitart (Lortab 10/325) 1 tab PRN Q6HRS PRN PO SEVERE PAIN Last administered on 01/08/17 22:57; Start 01/07/17 at 02:30 Dextrose (Dextrose 50%-Water Syringe) 12.5 gm PRN Q15MIN PRN IV SEE COMMENTS; Start 01/07/17 at 07:15; Stop 01/07/17 at 14:57; Status DC Isosorbide Mononitrate (Imdur) 30 mg DAILY08 PO Last administered on 01/10/17 09:09; Start 01/07/17 at 10:00 Furosemide (Lasix) 40 mg BID92 IVP Last administered on 01/08/17 08:29; Start 01/07/17 at 14:00; Stop 01/08/17 at 08:46; Status DC Insulin Detemir (Levemir) 60 units QHS SQ Last administered on 01/07/17 21:55 ; Start 01/07/17 at 15:00; Stop 01/08/17 at 08:34; Status DC Insulin Detemir (Levemir) 60 units DAILY08 SQ Last administered on 01/09/17 09 :36; Start 01/08/17 at 08:00; Stop 01/09/17 at 11:21; Status DC Dextrose (Dextrose 50%-Water Syringe) 12.5 gm PRN Q15MIN PRN IV SEE COMMENTS; Start 01/07/17 at 15:00 Insulin Aspart (Novolog) 10 units TIDAC SQ Last administered on 01/09/17 18:25 ; Start 01/07/17 at 16:30; Stop 01/10/17 at 08:46; Status DC Insulin Detemir (Levemir) 80 units QHS SQ Last administered on 01/09/17 20:41 ; Start 01/08/17 at 21:00; Stop 01/10/17 at 08:46; Status DC Furosemide (Lasix) 80 mg DAILY PO Last administered on 01/09/17 09:21; Start 01/08/17 at 12:00; Stop 01/09/17 at 11:31; Status DC Insulin Detemir (Levemir) 80 units DAILY08 SQ ; Start 01/10/17 at 08:00; Stop at 08:46; Status DC Insulin Detemir (Levemir) 20 units 1X ONCE SQ Last administered on 01/09/17 12:27; Start 01/09/17 at 11:30; Stop 01/09/17 at 11:31; Status DC Furosemide (Lasix) 80 mg BID76 PO Last administered on 01/10/17 06:06; Start 01/09/17 at 18:00; Stop 01/10/17 at 08:46; Status DC Mupirocin (Bactroban) 1 jonnie TID TP Last administered on 01/10/17 09:12; Start 01/09/17 at 14:00 Cephalexin HCl (Keflex) 500 mg TID PO Last administered on 01/10/17 09:09; Start 01/09/17 at 12:30 Furosemide (Lasix) 40 mg DAILY08 PO ; Start 01/11/17 at 08:00 Insulin Aspart (Novolog) 15 units TIDAC SQ Last administered on 01/10/17 12:21 ; Start 01/10/17 at 11:30 Insulin Detemir (Levemir) 90 units QHS SQ ; Start 01/10/17 at 21:00 Insulin Detemir (Levemir) 90 units DAILY08 SQ Last administered on 01/10/17 09 :23; Start 01/10/17 at 09:00 Active Scripts Active Coreg (Carvedilol) 3.125 Mg Tablet 3.125 Mg PO BIDWMEALS Reported Prednisone 10 Mg Tablet 10 Mg PO UD Take 3 tablets by mouth twice a day for 3 days, then take 2 tablets by mouth twice a day for 3 days, then take 1 tablet by mouth twice a day for 3 days, then take 1 tablet by mouth daily x 3 days, then stop. Furosemide 40 Mg Tablet 1 Tab PO DAILY Aspir 81 (Aspirin) 81 Mg Tablet.dr 1 Tab PO DAILY Nitrostat (Nitroglycerin) 0.4 Mg Tab.subl 0.4 Mg SL PRN Q5MIN PRN Isosorbide Mononitrate Er (Isosorbide Mononitrate) 30 Mg Tab.er.24h 30 Mg PO TID Ranexa (Ranolazine) 1,000 Mg Tab.er.12h 1 Tab PO BID Lisinopril 20 Mg Tablet 1 Tab PO DAILY Lortab 10-325 mg Tablet (Hydrocodone/Acetaminophen) 1 Each Tablet 1 Tab PO QID Plavix (Clopidogrel Bisulfate) 75 Mg Tablet 1 Tab PO DAILY Gabapentin 300 Mg Capsule 1 Cap PO BID Hydrochlorothiazide Capsule (Hydrochlorothiazide) 12.5 Mg Capsule 25 Mg PO DAILY Paxil (Paroxetine Hcl) 20 Mg Tablet 1 Tab PO DAILY Allopurinol 100 Mg Tablet 3 Tab PO DAILY Nabumetone 500 Mg Tablet 1 Tab PO BID Humulin N (Nph, Human Insulin Isophane) 100 Unit/1 Ml Vial 90 Unit SQ TID Vitals/I & O Vital Sign - Last 24 Hours 01/09/17 01/09/17 01/09/17 01/09/17 18:13 19:00 20:00 20:35 Temp 98.1 98.1 Pulse 91 91 91 Resp 20 B/P 155/80 138/72 155/80 Pulse Ox 94 O2 Delivery Room Air Room Air 01/09/17 01/10/17 01/10/17 01/10/17 23:00 03:00 07:00 08:00 Temp 98.5 98.4 97.8 98.5 98.4 97.8 Pulse 84 94 83 Resp 20 18 18 B/P 134/74 117/60 124/77 Pulse Ox 91 91 91 O2 Delivery Room Air Room Air Room Air Room Air 01/10/17 01/10/17 01/10/17 01/10/17 09:07 09:09 09:10 11:00 Temp 98.1 98.1 Pulse 83 83 83 91 Resp 18 B/P 124/77 124/77 124/77 147/78 Pulse Ox 92 O2 Delivery Room Air Intake and Output 01/09/17 01/09/17 01/10/17 15:00 23:00 07:00 Intake Total 1600 ml Output Total 250 ml 2950 ml 2350 ml Balance -250 ml -1350 ml -2350 ml TRISTIN CORDOVA MD Jan 10, 2017 15:42
[2017-01-10 19:35] VITALS: BP 136/74
[2017-01-10 23:10] VITALS: BP 147/71
[2017-01-11 03:35] VITALS: BP 124/72
[2017-01-11 07:00] VITALS: BP 128/76
[2017-01-11 07:13] LABS: CALCIUM 9.2 mg/dL (8.5-10.1); CREATININE 1.5 mg/dL (0.7-1.3); POTASSIUM 4.1 mmol/L (3.5-5.1)
[2017-01-11] MEDS: INSULIN ASPART 300 UNITS/3 ML INSULN.PEN SQ SCH ×2 (07:30→09:57)
[2017-01-11] MEDS: INSULIN DETEMIR 300 UNITS/3 ML INSULN.PEN. SQ SCH (08:00)
[2017-01-11] MEDS: CARVEDILOL 3.125 MG TABLET. PO SCH ×2 (08:00→09:43)
[2017-01-11] MEDS ORDERED: FUROSEMIDE 40 MG TABLET. PO SCH (08:00)
--- NOTE | 2017-01-11 08:36 | DISCH ---
DISCHARGE INSTRUCTIONS Condition on Discharge Condition on Discharge: Stable Activity After Discharge Activity Instructions for Disc: No restrictions Diet after Discharge Diet after Discharge: Diabetic No Calorie Level Follow-Up Follow up with: as scheduled LATRICIA SOLORZANO MD Jan 11, 2017 08:36
--- NOTE | 2017-01-11 08:51 | PDOC ---
Provider Note Provider Note [id number] LATRICIA SOLORZANO MD Jan 11, 2017 08:51
[2017-01-11] MEDS: ASPIRIN ENTERIC COATED 81 MG TABLET.DR. PO SCH (09:00)
[2017-01-11] MEDS: CLOPIDOGREL BISULFATE 75 MG TABLET PO SCH (09:40)
[2017-01-11] MEDS: RANOLAZINE 500 MG TAB.ER.12H PO SCH (09:41)
[2017-01-11] MEDS: CEPHALEXIN 250 MG CAPSULE. PO SCH (09:42)
[2017-01-11] MEDS: PAROXETINE 20 MG TABLET. PO SCH (09:42)
[2017-01-11 09:43] VITALS: BP 128/76
[2017-01-11] MEDS: ISOSORBIDE MONONITRATE ER 30 MG TAB.ER.24H PO SCH (09:43)
[2017-01-11] MEDS: GABAPENTIN 300 MG CAPSULE. PO SCH (09:43)
[2017-01-11] MEDS: MUPIROCIN 2 % TOPICAL CREAM 15GM TUBE. TP SCH (09:47)
--- NOTE | 2017-01-11 15:37 | DS ---
DATE OF DISCHARGE: 01/11/2017 HOSPITAL SUMMARY: An 79-year-old white male came in with increasing swelling, weakness, shortness of breath, cough and orthopnea. He also had an increasing draining wound in the left lower extremity from swelling. Wound culture is pending gram stain showed a few gram positive cocci. BUN 55, creatinine 3.0 on admission with normal electrolytes and cardiac enzymes were normal as was the CBC. Creatinine came down with diuresis and discontinuation of medications to current value BUN of 30 and creatinine of 1.5. It was felt the etiology was renal insufficiency, was due to some certain medications. So, hydrochlorothiazide and lisinopril were stopped and Lasix was given IV and orally with excellent diuresis. He loss to about 30 pounds body weight and the edema significantly reduced and the left lower extremity leg wound is treated with and Keflex and is improved as well at this time. As his renal function is stable, his orthopnea is resolved. He is comfortable to be followed as an outpatient. Echocardiogram revealed a good ejection fraction of 55% with no significant valvular lesions and concentric LVH was present. FINAL DIAGNOSES: 1. Acute renal failure likely secondary to multiple medications. 2. Edema and orthopnea secondary to acute renal failure and fluid retention. 3. Infected wound, left lower extremity, improved. OPERATIONS, PROCEDURES, COMPLICATIONS: None. CONSULTATIONS: Dr. Alexander, Dr. Arechiga. DISPOSITION: He will stay off hydrochlorothiazide, , lisinopril for now as likely for more than others that was the etiology of the problem. Continue Lasix 40 mg daily, it maintenance and current other meds remain the same. Keflex 500 mg 3 times a day for 5 more days to the left leg wound as well as topical t.i.d. . We will see him in the office in 4 days and follow up on renal function. Celebrex may be considered at this increasing pain present after stopping the but could affect his renal function negatively as well. PROGNOSIS: Guarded. LATRICIA SOLORZANO MD DR: MIREYA/sandrita JOB#: [id number] / [id number]
== END 2017-01-11 10:58 | disposition home or self-care (01) | DRG 682 ==
LOC: ER 20:31 → 2 NORTH 23:25
PROVIDERS: ADMIT Family Medicine; ATTEND Family Medicine
DX: N17.9 Acute kidney failure, unspecified (principal); I50.33 Acute on chronic diastolic (congestive) heart failure; K50.90 Crohn's disease, unspecified, without complications; Z68.42 Body mass index [BMI] 45.0-49.9, adult; I11.0 Hypertensive heart disease with heart failure; I25.10 Atherosclerotic heart disease of native coronary artery without angina pectoris; M10.9 Gout, unspecified; M54.2 Cervicalgia; G89.29 Other chronic pain; Y92.89 Other specified places as the place of occurrence of the external cause; E11.65 Type 2 diabetes mellitus with hyperglycemia; J44.9 Chronic obstructive pulmonary disease, unspecified; T50.905A Adverse effect of unspecified drugs, medicaments and biological substances, initial encounter; I25.5 Ischemic cardiomyopathy; R33.9 Retention of urine, unspecified; Z95.1 Presence of aortocoronary bypass graft; Z95.5 Presence of coronary angioplasty implant and graft; Z93.3 Colostomy status; Z88.6 Allergy status to analgesic agent; I25.2 Old myocardial infarction; E66.01 Morbid (severe) obesity due to excess calories
CPT/HCPCS: 36415; 71010; 76770; 80048; 80053; 82040; 82553; 82947; 83735; 83880; 84484; 85027; 87071; 87075; 87186; 87205; 93005; 93306; J1815; J1940; 99285-25

== ENCOUNTER → 2017-02-03 | Outpatient (CLI) | payer MEDICARE ==
[2017-01-11 09:43] VITALS: BP 128/76
[2017-02-03 15:24] LABS: BF COLOR RED
[2017-02-03 15:25] LABS: BF CLARITY TURBID
== END | disposition home or self-care (01) ==
LOC: SPEC 13:04
PROVIDERS: ATTEND Orthopaedic Surgery Sports Medicine
DX: M25.462 Effusion, left knee (principal)
CPT/HCPCS: 87071; 87075; 87205; 89050; 89060

== ENCOUNTER 2017-09-24 10:31 | Outpatient (CLI) | payer MEDICARE ==
[2017-09-24] MEDS ORDERED: HEPARIN for IV BOLUS 10,000 UNIT/10 ML VIAL. (12:33)
[2017-09-24] MEDS ORDERED: LIDOCAINE 2%/EPI 1:100,000 20 ML VIAL. (12:33)
[2017-09-24] MEDS ORDERED: MIDAZOLAM HCL/PF 2 MG/2 ML VIAL. (12:34)
[2017-09-24] MEDS ORDERED: fentaNYL PF VIAL 100 MCG/2 ML VIAL (12:34)
[2017-09-24] MEDS: LIDOCAINE 2%/EPI 1:100,000 20 ML VIAL. IJ (12:45)
[2017-09-24] MEDS: MIDAZOLAM HCL/PF 2 MG/2 ML VIAL. IV (12:55)
[2017-09-24] MEDS: fentaNYL PF VIAL 100 MCG/2 ML VIAL IV (12:55)
== END 2017-09-24 14:35 | disposition home or self-care (01) ==
LOC: INTRAD 10:31
DX: T82.41XA Breakdown (mechanical) of vascular dialysis catheter, initial encounter (principal); Y83.8 Other surgical procedures as the cause of abnormal reaction of the patient, or of later complication, without mention of misadventure at the time of the procedure; Y92.9 Unspecified place or not applicable; E11.42 Type 2 diabetes mellitus with diabetic polyneuropathy; G30.9 Alzheimer's disease, unspecified; F02.80 Dementia in other diseases classified elsewhere, unspecified severity, without behavioral disturbance, psychotic disturbance, mood disturbance, and anxiety; I25.10 Atherosclerotic heart disease of native coronary artery without angina pectoris; Z95.5 Presence of coronary angioplasty implant and graft; K50.90 Crohn's disease, unspecified, without complications; Z86.010 Personal history of colon polyps; Z93.3 Colostomy status; Z90.49 Acquired absence of other specified parts of digestive tract; Z87.442 Personal history of urinary calculi; E66.9 Obesity, unspecified; F32.9 Major depressive disorder, single episode, unspecified; F41.9 Anxiety disorder, unspecified; M10.9 Gout, unspecified; F17.220 Nicotine dependence, chewing tobacco, uncomplicated; Z79.4 Long term (current) use of insulin; I13.0 Hypertensive heart and chronic kidney disease with heart failure and stage 1 through stage 4 chronic kidney disease, or unspecified chronic kidney disease; E11.22 Type 2 diabetes mellitus with diabetic chronic kidney disease; N18.9 Chronic kidney disease, unspecified; I50.9 Heart failure, unspecified; Z88.6 Allergy status to analgesic agent; Z91.048 Other nonmedicinal substance allergy status
CPT/HCPCS: 36581; 77001; 99152; C1750; C1769; J0690; J2250; J3010; J3490

== ENCOUNTER → 2017-09-29 | Outpatient (CLI) | payer MEDICARE | END | disposition home or self-care (01) | LOC: PMGWOUND 08:21 | DX: I70.248 Atherosclerosis of native arteries of left leg with ulceration of other part of lower leg (principal); E11.622 Type 2 diabetes mellitus with other skin ulcer; L97.221 Non-pressure chronic ulcer of left calf limited to breakdown of skin; F41.9 Anxiety disorder, unspecified; I25.10 Atherosclerotic heart disease of native coronary artery without angina pectoris; E11.22 Type 2 diabetes mellitus with diabetic chronic kidney disease; I13.2 Hypertensive heart and chronic kidney disease with heart failure and with stage 5 chronic kidney disease, or end stage renal disease; N18.6 End stage renal disease; I50.23 Acute on chronic systolic (congestive) heart failure; F32.9 Major depressive disorder, single episode, unspecified; G30.9 Alzheimer's disease, unspecified; F02.80 Dementia in other diseases classified elsewhere, unspecified severity, without behavioral disturbance, psychotic disturbance, mood disturbance, and anxiety; E66.01 Morbid (severe) obesity due to excess calories; E11.42 Type 2 diabetes mellitus with diabetic polyneuropathy; J44.9 Chronic obstructive pulmonary disease, unspecified; I25.2 Old myocardial infarction; G89.29 Other chronic pain; Z99.2 Dependence on renal dialysis; Z79.4 Long term (current) use of insulin; Z68.43 Body mass index [BMI] 50.0-59.9, adult; Z95.1 Presence of aortocoronary bypass graft; Z90.49 Acquired absence of other specified parts of digestive tract | CPT/HCPCS: 97597; 97598 ==

== ENCOUNTER → 2017-10-05 | Outpatient (CLI) | payer MEDICARE ==
[2017-10-05 13:12] LABS: POTASSIUM 5.2 mmol/L (3.5-5.1)
== END | disposition home or self-care (01) ==
LOC: LAB 12:36
DX: N18.6 End stage renal disease (principal); Z99.2 Dependence on renal dialysis
CPT/HCPCS: 36415; 84132

== ENCOUNTER → 2017-10-08 | Outpatient (CLI) | payer MEDICARE | END | disposition home or self-care (01) | LOC: PMGWOUND 11:27 | DX: I70.248 Atherosclerosis of native arteries of left leg with ulceration of other part of lower leg (principal); I87.333 Chronic venous hypertension (idiopathic) with ulcer and inflammation of bilateral lower extremity; E11.622 Type 2 diabetes mellitus with other skin ulcer; L97.221 Non-pressure chronic ulcer of left calf limited to breakdown of skin; F41.9 Anxiety disorder, unspecified; I25.10 Atherosclerotic heart disease of native coronary artery without angina pectoris; E11.22 Type 2 diabetes mellitus with diabetic chronic kidney disease; I13.2 Hypertensive heart and chronic kidney disease with heart failure and with stage 5 chronic kidney disease, or end stage renal disease; N18.6 End stage renal disease; I50.23 Acute on chronic systolic (congestive) heart failure; F32.9 Major depressive disorder, single episode, unspecified; G30.9 Alzheimer's disease, unspecified; F02.80 Dementia in other diseases classified elsewhere, unspecified severity, without behavioral disturbance, psychotic disturbance, mood disturbance, and anxiety; E66.01 Morbid (severe) obesity due to excess calories; E11.42 Type 2 diabetes mellitus with diabetic polyneuropathy; J44.9 Chronic obstructive pulmonary disease, unspecified; I25.2 Old myocardial infarction; G89.29 Other chronic pain; Z99.2 Dependence on renal dialysis; Z79.4 Long term (current) use of insulin; Z68.43 Body mass index [BMI] 50.0-59.9, adult; Z95.1 Presence of aortocoronary bypass graft; Z90.49 Acquired absence of other specified parts of digestive tract | CPT/HCPCS: 29581; 97597 ==

== ENCOUNTER → 2017-10-11 | Outpatient (CLI) | payer MEDICARE | END | disposition home or self-care (01) | LOC: PMGWOUND 12:55 | DX: I70.248 Atherosclerosis of native arteries of left leg with ulceration of other part of lower leg (principal); L97.221 Non-pressure chronic ulcer of left calf limited to breakdown of skin; E11.622 Type 2 diabetes mellitus with other skin ulcer; I87.333 Chronic venous hypertension (idiopathic) with ulcer and inflammation of bilateral lower extremity; F41.9 Anxiety disorder, unspecified; I25.10 Atherosclerotic heart disease of native coronary artery without angina pectoris; E11.22 Type 2 diabetes mellitus with diabetic chronic kidney disease; I13.2 Hypertensive heart and chronic kidney disease with heart failure and with stage 5 chronic kidney disease, or end stage renal disease; N18.6 End stage renal disease; I50.23 Acute on chronic systolic (congestive) heart failure; F32.9 Major depressive disorder, single episode, unspecified; G30.9 Alzheimer's disease, unspecified; F02.80 Dementia in other diseases classified elsewhere, unspecified severity, without behavioral disturbance, psychotic disturbance, mood disturbance, and anxiety; E66.01 Morbid (severe) obesity due to excess calories; E11.42 Type 2 diabetes mellitus with diabetic polyneuropathy; J44.9 Chronic obstructive pulmonary disease, unspecified; I25.2 Old myocardial infarction; G89.29 Other chronic pain; Z99.2 Dependence on renal dialysis; Z79.4 Long term (current) use of insulin; Z68.43 Body mass index [BMI] 50.0-59.9, adult; Z95.1 Presence of aortocoronary bypass graft; Z90.49 Acquired absence of other specified parts of digestive tract | CPT/HCPCS: 29581 ==

== ENCOUNTER → 2017-10-15 | Outpatient (CLI) | payer MEDICARE | END | disposition home or self-care (01) | LOC: PMGWOUND 10:48 | DX: I70.248 Atherosclerosis of native arteries of left leg with ulceration of other part of lower leg (principal); E11.622 Type 2 diabetes mellitus with other skin ulcer; L97.221 Non-pressure chronic ulcer of left calf limited to breakdown of skin; L89.893 Pressure ulcer of other site, stage 3; L98.491 Non-pressure chronic ulcer of skin of other sites limited to breakdown of skin; I87.333 Chronic venous hypertension (idiopathic) with ulcer and inflammation of bilateral lower extremity; F41.9 Anxiety disorder, unspecified; I25.10 Atherosclerotic heart disease of native coronary artery without angina pectoris; E11.22 Type 2 diabetes mellitus with diabetic chronic kidney disease; I13.2 Hypertensive heart and chronic kidney disease with heart failure and with stage 5 chronic kidney disease, or end stage renal disease; N18.6 End stage renal disease; I50.23 Acute on chronic systolic (congestive) heart failure; F32.9 Major depressive disorder, single episode, unspecified; G30.9 Alzheimer's disease, unspecified; F02.80 Dementia in other diseases classified elsewhere, unspecified severity, without behavioral disturbance, psychotic disturbance, mood disturbance, and anxiety; E66.01 Morbid (severe) obesity due to excess calories; E11.42 Type 2 diabetes mellitus with diabetic polyneuropathy; J44.9 Chronic obstructive pulmonary disease, unspecified; I25.2 Old myocardial infarction; G89.29 Other chronic pain; Z99.2 Dependence on renal dialysis; Z79.4 Long term (current) use of insulin; Z68.43 Body mass index [BMI] 50.0-59.9, adult; Z95.1 Presence of aortocoronary bypass graft; Z90.49 Acquired absence of other specified parts of digestive tract | CPT/HCPCS: 29581; 97597 ==

== ENCOUNTER → 2017-10-19 | Outpatient (CLI) | payer MEDICARE | END | disposition home or self-care (01) | LOC: PMGWOUND 07:43 | DX: I70.248 Atherosclerosis of native arteries of left leg with ulceration of other part of lower leg (principal); E11.622 Type 2 diabetes mellitus with other skin ulcer; L97.221 Non-pressure chronic ulcer of left calf limited to breakdown of skin; L89.893 Pressure ulcer of other site, stage 3; L98.491 Non-pressure chronic ulcer of skin of other sites limited to breakdown of skin; I87.333 Chronic venous hypertension (idiopathic) with ulcer and inflammation of bilateral lower extremity; F41.9 Anxiety disorder, unspecified; I25.10 Atherosclerotic heart disease of native coronary artery without angina pectoris; E11.22 Type 2 diabetes mellitus with diabetic chronic kidney disease; I13.2 Hypertensive heart and chronic kidney disease with heart failure and with stage 5 chronic kidney disease, or end stage renal disease; N18.6 End stage renal disease; I50.23 Acute on chronic systolic (congestive) heart failure; F32.9 Major depressive disorder, single episode, unspecified; G30.9 Alzheimer's disease, unspecified; F02.80 Dementia in other diseases classified elsewhere, unspecified severity, without behavioral disturbance, psychotic disturbance, mood disturbance, and anxiety; E66.01 Morbid (severe) obesity due to excess calories; E11.42 Type 2 diabetes mellitus with diabetic polyneuropathy; J44.9 Chronic obstructive pulmonary disease, unspecified; I25.2 Old myocardial infarction; G89.29 Other chronic pain; Z99.2 Dependence on renal dialysis; Z79.4 Long term (current) use of insulin; Z68.43 Body mass index [BMI] 50.0-59.9, adult; Z95.1 Presence of aortocoronary bypass graft; Z90.49 Acquired absence of other specified parts of digestive tract | CPT/HCPCS: 87071; 87075; 87205; 99215 ==

== ENCOUNTER → 2017-10-26 | Outpatient (CLI) | payer MEDICARE | END | disposition home or self-care (01) | LOC: PMGWOUND 08:02 | DX: E11.622 Type 2 diabetes mellitus with other skin ulcer (principal); L97.221 Non-pressure chronic ulcer of left calf limited to breakdown of skin; I87.333 Chronic venous hypertension (idiopathic) with ulcer and inflammation of bilateral lower extremity; I70.248 Atherosclerosis of native arteries of left leg with ulceration of other part of lower leg; L89.893 Pressure ulcer of other site, stage 3; L98.491 Non-pressure chronic ulcer of skin of other sites limited to breakdown of skin; L02.211 Cutaneous abscess of abdominal wall; E11.22 Type 2 diabetes mellitus with diabetic chronic kidney disease; I13.2 Hypertensive heart and chronic kidney disease with heart failure and with stage 5 chronic kidney disease, or end stage renal disease; I50.23 Acute on chronic systolic (congestive) heart failure; N18.6 End stage renal disease; G89.29 Other chronic pain; M54.2 Cervicalgia; E66.01 Morbid (severe) obesity due to excess calories; E11.42 Type 2 diabetes mellitus with diabetic polyneuropathy; F17.220 Nicotine dependence, chewing tobacco, uncomplicated; I25.2 Old myocardial infarction; F32.9 Major depressive disorder, single episode, unspecified; G30.9 Alzheimer's disease, unspecified; F02.80 Dementia in other diseases classified elsewhere, unspecified severity, without behavioral disturbance, psychotic disturbance, mood disturbance, and anxiety; F41.9 Anxiety disorder, unspecified; I25.810 Atherosclerosis of coronary artery bypass graft(s) without angina pectoris; F44.9 Dissociative and conversion disorder, unspecified; Z99.2 Dependence on renal dialysis; Z68.43 Body mass index [BMI] 50.0-59.9, adult; Z95.820 Peripheral vascular angioplasty status with implants and grafts; Z95.1 Presence of aortocoronary bypass graft; Z79.4 Long term (current) use of insulin | CPT/HCPCS: 99214 ==

== ENCOUNTER → 2017-11-01 | Outpatient (CLI) | payer MEDICARE | END | disposition home or self-care (01) | LOC: PMGWOUND 12:20 | DX: E11.622 Type 2 diabetes mellitus with other skin ulcer (principal); L97.221 Non-pressure chronic ulcer of left calf limited to breakdown of skin; I87.333 Chronic venous hypertension (idiopathic) with ulcer and inflammation of bilateral lower extremity; I70.248 Atherosclerosis of native arteries of left leg with ulceration of other part of lower leg; L02.211 Cutaneous abscess of abdominal wall; L02.11 Cutaneous abscess of neck; E11.22 Type 2 diabetes mellitus with diabetic chronic kidney disease; I13.2 Hypertensive heart and chronic kidney disease with heart failure and with stage 5 chronic kidney disease, or end stage renal disease; I50.23 Acute on chronic systolic (congestive) heart failure; N18.6 End stage renal disease; G89.29 Other chronic pain; M54.2 Cervicalgia; E66.01 Morbid (severe) obesity due to excess calories; E11.42 Type 2 diabetes mellitus with diabetic polyneuropathy; F17.220 Nicotine dependence, chewing tobacco, uncomplicated; I25.2 Old myocardial infarction; F32.9 Major depressive disorder, single episode, unspecified; G30.9 Alzheimer's disease, unspecified; F02.80 Dementia in other diseases classified elsewhere, unspecified severity, without behavioral disturbance, psychotic disturbance, mood disturbance, and anxiety; F41.9 Anxiety disorder, unspecified; I25.810 Atherosclerosis of coronary artery bypass graft(s) without angina pectoris; F44.9 Dissociative and conversion disorder, unspecified; Z99.2 Dependence on renal dialysis; Z68.43 Body mass index [BMI] 50.0-59.9, adult; Z95.820 Peripheral vascular angioplasty status with implants and grafts; Z95.1 Presence of aortocoronary bypass graft; Z79.4 Long term (current) use of insulin | CPT/HCPCS: 97597 ==

== ENCOUNTER 2017-11-09 15:21 | Inpatient (IN) | payer MEDICARE ==
[2017-11-09 16:00] LABS: ADD MAN DIFF? NO
[2017-11-09 16:13] LABS: ANION GAP 10 (6-14); BLOOD UREA NITROGEN 27 mg/dL (8-26); BUN/CREATININE RATIO 18 (6-20); CALCIUM 8.5 mg/dL (8.5-10.1); CARBON DIOXIDE 24 mmol/L (21-32); CHLORIDE 104 mmol/L (98-107); CREATININE 1.5 mg/dL (0.7-1.3); GFR 48.8; GLUCOSE 108 mg/dL (70-99); POTASSIUM 4.7 mmol/L (3.5-5.1); SODIUM 138 mmol/L (136-145)
[2017-11-09 16:17] LABS: BASO % 0 % (0-3); EOS # 0.1 x10^3/uL (0.0-0.7); EOS % 2 % (0-3); HEMATOCRIT 32.6 % (39.0-53.0); HEMOGLOBIN 10.1 g/dL (13.0-17.5); LYMPH # 1.3 x10^3/uL (1.0-4.8); LYMPH % 17 % (24-48); MEAN CORPUSCULAR HEMOGLOBIN 28 pg (25-35); MEAN CORPUSCULAR HGB CONC 31 g/dL (31-37); MEAN CORPUSCULAR VOLUME 91 fL (79-100); MONO % 12 % (0-9); NEUT # 5.3 x10^3uL (1.8-7.7); NEUT % 68 % (31-73); PLATELET COUNT 316 x10^3/uL (140-400); RED BLOOD COUNT 3.57 x10^6/uL (4.30-5.70); WHITE BLOOD COUNT 7.7 x10^3/uL (4.0-11.0)
[2017-11-09 16:19] LABS: ALBUMIN/GLOBULIN RATIO 0.8 (1.0-1.7); ALK PHOS 74 U/L (46-116); ALT (SGPT) 20 U/L (16-63); AST (SGOT) 25 U/L (15-37); TOTAL BILIRUBIN 0.4 mg/dL (0.2-1.0); TOTAL PROTEIN 6.9 g/dL (6.4-8.2)
[2017-11-09 16:31] LABS: TROPONINI 0.077 ng/mL (0.000-0.055)
[2017-11-09 16:40] LABS: INR 1.4 (0.8-1.1); PARTIAL THROMBOPLASTIN TIME 29 SEC (24-38); PROTHROMBIN TIME PATIENT 16.7 SEC (11.7-14.0)
[2017-11-09] MEDS: IV NORMAL SALINE 500ML BAG 500 ML IV ×2 (17:01)
[2017-11-09 17:24] LABS: MAGNESIUM 1.7 mg/dL (1.8-2.4)
[2017-11-09] MEDS ORDERED: NITROGLYCERIN SUBLINGUAL 0.4 MG BOTTLE OF 25. SL ×4 (17:30→21:00)
[2017-11-09] MEDS: ASPIRIN 325 MG TABLET PO ×2 (17:55)
[2017-11-09 17:57] LABS: NT-PRO BNP 8099 pg/mL (0-124)
[2017-11-09] MEDS: ACETAMINOPHEN 325 MG TABLET. PO ×2 (20:46)
[2017-11-09] MEDS: ONDANSETRON PF 4 MG/2 ML VIAL. IV ×2 (20:47)
[2017-11-09 20:58] LABS: POC GLUCOSE 98 mg/dL (70-99)
[2017-11-09] MEDS: GABAPENTIN 300 MG CAPSULE. PO ×2 (21:33)
[2017-11-09] MEDS: LACTOBACILLUS RHAMNOSUS GG 1 CAPSULE. PO ×2 (21:33)
[2017-11-09] MEDS: RANOLAZINE 500 MG TAB.ER.12H PO ×2 (21:34)
[2017-11-09] MEDS: diphenhydrAMINE HCL 25 MG CAPSULE PO ×2 (21:45)
[2017-11-09 21:46] LABS: TROPONINI 0.082 ng/mL (0.000-0.055)
[2017-11-09] MEDS: HYDROcodone/APAP 10/325 1 TAB TABLET PO ×2 (21:46)
[2017-11-10] LABS: TROPONINI 0.074 ng/mL (0.000-0.055)
[2017-11-10 06:19] LABS: ADD MAN DIFF? NO; BILIRUBIN,URINE SMALL (NEG); CLARITY,URINE CLEAR; COLOR,URINE AMBER; GLUCOSE,URINE NEGATIVE (NEG); NITRITE,URINE NEGATIVE (NEG); PH,URINE 5.5; PROTEIN,URINE 30 mg/dL (NEG-TRACE); UROBILINOGEN,URINE 0.2 mg/dL (0.2 mg/dL)
[2017-11-10 06:36] LABS: BACTERIA,URINE FEW /HPF (0-FEW); HYALINE CASTS, URINE MODERATE /HPF; RBC,URINE OCC /HPF (0-2)
[2017-11-10 06:46] LABS: BASO % 1 % (0-3); EOS # 0.2 x10^3/uL (0.0-0.7); EOS % 2 % (0-3); HEMATOCRIT 34.2 % (39.0-53.0); HEMOGLOBIN 10.5 g/dL (13.0-17.5); LYMPH # 1.6 x10^3/uL (1.0-4.8); LYMPH % 22 % (24-48); MEAN CORPUSCULAR HEMOGLOBIN 28 pg (25-35); MEAN CORPUSCULAR HGB CONC 31 g/dL (31-37); MEAN CORPUSCULAR VOLUME 92 fL (79-100); MONO # 0.9 x10^3/uL (0.0-1.1); MONO % 12 % (0-9); NEUT # 4.7 x10^3uL (1.8-7.7); NEUT % 63 % (31-73); PLATELET COUNT 323 x10^3/uL (140-400); RED BLOOD COUNT 3.73 x10^6/uL (4.30-5.70); RED CELL DISTRIBUTION WIDTH 18.1 % (11.5-14.5); WHITE BLOOD COUNT 7.4 x10^3/uL (4.0-11.0)
[2017-11-10 07:01] LABS: ANION GAP 9 (6-14); BLOOD UREA NITROGEN 30 mg/dL (8-26); CALCIUM 8.9 mg/dL (8.5-10.1); CARBON DIOXIDE 25 mmol/L (21-32); CHLORIDE 102 mmol/L (98-107); GLUCOSE 140 mg/dL (70-99); POTASSIUM 5.2 mmol/L (3.5-5.1); SODIUM 136 mmol/L (136-145)
[2017-11-10 07:46] LABS: POC GLUCOSE 121 mg/dL (70-99)
[2017-11-10] MEDS: NPH HUMAN INSULIN ISOPHANE SQ ×6 (09:30→17:53)
[2017-11-10] MEDS: diphenhydrAMINE HCL 25 MG CAPSULE PO ×6 (09:33→22:25)
[2017-11-10] MEDS: PARoxetine 20 MG TABLET PO ×2 (09:33)
[2017-11-10] MEDS: CLOPIDOGREL BISULFATE 75 MG TABLET PO ×2 (09:34)
[2017-11-10] MEDS: HYDROcodone/APAP 10/325 1 TAB TABLET PO ×6 (09:34→22:25)
[2017-11-10] MEDS: GABAPENTIN 300 MG CAPSULE. PO ×4 (09:34→20:45)
[2017-11-10] MEDS: ISOSORBIDE MONONITRATE ER 30 MG TAB.ER.24H PO ×2 (09:34)
[2017-11-10] MEDS: LACTOBACILLUS RHAMNOSUS GG 1 CAPSULE. PO ×4 (09:35→20:45)
[2017-11-10] MEDS: PANTOPRAZOLE 40 MG TABLET.DR. PO ×2 (09:35)
[2017-11-10] MEDS: FUROSEMIDE 40 MG TABLET. PO ×2 (09:35)
[2017-11-10] MEDS: ASPIRIN ENTERIC COATED 81 MG TABLET.DR. PO ×2 (09:35)
[2017-11-10] MEDS: ALLOPURINOL 100 MG TABLET. PO ×2 (09:35)
[2017-11-10] MEDS: CARVEDILOL 3.125 MG TABLET. PO ×4 (09:36→16:21)
[2017-11-10] MEDS: RANOLAZINE 500 MG TAB.ER.12H PO ×4 (09:36→20:45)
[2017-11-10 11:57] LABS: POC GLUCOSE 175 mg/dL (70-99)
[2017-11-10 17:01] LABS: POC GLUCOSE 230 mg/dL (70-99)
[2017-11-10] MEDS: DARBEPOETIN ALFA 60 MCG/0.3 ML DISP.SYRIN. SQ ×2 (20:46)
[2017-11-10 20:59] LABS: POC GLUCOSE 217 mg/dL (70-99)
[2017-11-11] MEDS: diphenhydrAMINE HCL 25 MG CAPSULE PO ×4 (04:27→20:35)
[2017-11-11] MEDS: HYDROcodone/APAP 10/325 1 TAB TABLET PO ×4 (04:27→20:35)
[2017-11-11 05:08] LABS: ANION GAP 10 (6-14); BLOOD UREA NITROGEN 31 mg/dL (8-26); CARBON DIOXIDE 24 mmol/L (21-32); CHLORIDE 101 mmol/L (98-107); CREATININE 1.8 mg/dL (0.7-1.3); GFR 39.5; GLUCOSE 158 mg/dL (70-99); MAGNESIUM 1.7 mg/dL (1.8-2.4); POTASSIUM 4.3 mmol/L (3.5-5.1); SODIUM 135 mmol/L (136-145)
[2017-11-11] MEDS: NPH HUMAN INSULIN ISOPHANE SQ ×6 (07:30→17:23)
[2017-11-11 07:51] LABS: POC GLUCOSE 94 mg/dL (70-99)
[2017-11-11] MEDS ORDERED: IV NORMAL SALINE 1000ML BAG 1,000 ML IV ×4 (07:52)
[2017-11-11] MEDS ORDERED: ACETAMINOPHEN 500 MG TABLET PO ×2 (08:00)
[2017-11-11] MEDS ORDERED: diphenhydrAMINE 50 MG/ML VIAL IV ×4 (08:00)
[2017-11-11] MEDS ORDERED: DIALYSIS PATIENT. MC ×2 (08:00)
[2017-11-11] MEDS: CLOPIDOGREL BISULFATE 75 MG TABLET PO ×2 (10:30)
[2017-11-11] MEDS: PARoxetine 20 MG TABLET PO ×2 (10:30)
[2017-11-11] MEDS: CARVEDILOL 3.125 MG TABLET. PO ×4 (10:30→17:22)
[2017-11-11] MEDS: ISOSORBIDE MONONITRATE ER 30 MG TAB.ER.24H PO ×2 (10:30)
[2017-11-11] MEDS: RANOLAZINE 500 MG TAB.ER.12H PO ×4 (10:30→20:34)
[2017-11-11] MEDS: ASPIRIN ENTERIC COATED 81 MG TABLET.DR. PO ×2 (10:30)
[2017-11-11] MEDS: PANTOPRAZOLE 40 MG TABLET.DR. PO ×2 (10:31)
[2017-11-11] MEDS: ALLOPURINOL 100 MG TABLET. PO ×2 (10:31)
[2017-11-11] MEDS: FUROSEMIDE 40 MG TABLET. PO ×2 (10:31)
[2017-11-11] MEDS: GABAPENTIN 300 MG CAPSULE. PO ×4 (10:31→20:35)
[2017-11-11] MEDS: LACTOBACILLUS RHAMNOSUS GG 1 CAPSULE. PO ×4 (10:31→20:35)
[2017-11-11 12:19] LABS: POC GLUCOSE 164 mg/dL (70-99)
[2017-11-11 16:48] LABS: POC GLUCOSE 148 mg/dL (70-99)
[2017-11-11 20:50] LABS: POC GLUCOSE 167 mg/dL (70-99)
[2017-11-12 01:17] LABS: POC GLUCOSE 94 mg/dL (70-99)
[2017-11-12] MEDS: diphenhydrAMINE HCL 25 MG CAPSULE PO ×4 (02:30→14:26)
[2017-11-12] MEDS: HYDROcodone/APAP 10/325 1 TAB TABLET PO ×4 (02:31→14:27)
[2017-11-12 05:45] LABS: ANION GAP 10 (6-14); BLOOD UREA NITROGEN 33 mg/dL (8-26); CALCIUM 9.1 mg/dL (8.5-10.1); CARBON DIOXIDE 24 mmol/L (21-32); CHLORIDE 102 mmol/L (98-107); CREATININE 1.7 mg/dL (0.7-1.3); GFR 42.2; GLUCOSE 90 mg/dL (70-99); MAGNESIUM 1.8 mg/dL (1.8-2.4); SODIUM 136 mmol/L (136-145)
[2017-11-12] MEDS: PANTOPRAZOLE 40 MG TABLET.DR. PO ×2 (06:18)
[2017-11-12] MEDS: NPH HUMAN INSULIN ISOPHANE SQ ×6 (08:08→17:46)
[2017-11-12 08:25] LABS: POC GLUCOSE 96 mg/dL (70-99)
[2017-11-12] MEDS: CARVEDILOL 3.125 MG TABLET. PO ×4 (08:33→17:45)
[2017-11-12] MEDS: RANOLAZINE 500 MG TAB.ER.12H PO ×2 (08:33)
[2017-11-12] MEDS: GABAPENTIN 300 MG CAPSULE. PO ×2 (08:33)
[2017-11-12] MEDS: ISOSORBIDE MONONITRATE ER 30 MG TAB.ER.24H PO ×2 (08:33)
[2017-11-12] MEDS: DEXTROSE ORAL GEL 15 GM TUBE. PO ×2 (08:34)
[2017-11-12 11:26] LABS: INR 1.3 (0.8-1.1); PROTHROMBIN TIME PATIENT 15.5 SEC (11.7-14.0)
[2017-11-12 11:37] LABS: POC GLUCOSE 142 mg/dL (70-99)
[2017-11-12] MEDS ORDERED: LIDOCAINE WITH 8.4% SOD BICARB 3 ML DISP.SYRIN. ×2 (12:38)
[2017-11-12] MEDS: ASPIRIN ENTERIC COATED 81 MG TABLET.DR. PO ×2 (14:27)
[2017-11-12] MEDS: PARoxetine 20 MG TABLET PO ×2 (14:27)
[2017-11-12] MEDS: ALLOPURINOL 100 MG TABLET. PO ×2 (14:27)
[2017-11-12] MEDS: CLOPIDOGREL BISULFATE 75 MG TABLET PO ×2 (14:27)
[2017-11-12] MEDS: LACTOBACILLUS RHAMNOSUS GG 1 CAPSULE. PO ×2 (14:27)
[2017-11-12] MEDS: FUROSEMIDE 40 MG TABLET. PO ×2 (14:27)
[2017-11-12 17:26] LABS: POC GLUCOSE 237 mg/dL (70-99)
== END 2017-11-12 18:30 | disposition home or self-care (01) | DRG 683 ==
LOC: ER 15:21 → 2 NORTH 17:22
PROC: 5A1D70Z Performance of Urinary Filtration, Intermittent, Less than 6 Hours Per Day (ICD-10-PCS; 2017-11-11)
PROC: 0JPTXXZ Removal of Tunneled Vascular Access Device from Trunk Subcutaneous Tissue and Fascia, External Approach (ICD-10-PCS; principal; 2017-11-12)
DX: N17.9 Acute kidney failure, unspecified (principal); I13.2 Hypertensive heart and chronic kidney disease with heart failure and with stage 5 chronic kidney disease, or end stage renal disease; I95.3 Hypotension of hemodialysis; E11.22 Type 2 diabetes mellitus with diabetic chronic kidney disease; E11.42 Type 2 diabetes mellitus with diabetic polyneuropathy; I42.0 Dilated cardiomyopathy; K50.90 Crohn's disease, unspecified, without complications; N18.6 End stage renal disease; D64.9 Anemia, unspecified; I25.10 Atherosclerotic heart disease of native coronary artery without angina pectoris; I50.9 Heart failure, unspecified; E21.3 Hyperparathyroidism, unspecified; I25.5 Ischemic cardiomyopathy; J44.9 Chronic obstructive pulmonary disease, unspecified; M10.9 Gout, unspecified; G89.29 Other chronic pain; Z99.2 Dependence on renal dialysis; Z87.442 Personal history of urinary calculi; Z90.49 Acquired absence of other specified parts of digestive tract; Z95.1 Presence of aortocoronary bypass graft; Z88.5 Allergy status to narcotic agent; Z91.048 Other nonmedicinal substance allergy status; I25.2 Old myocardial infarction
CPT/HCPCS: 36415; 36589; 70450; 71045; 73560; 80048; 80053; 81001; 82962; 83605; 83735; 83880; 84484; 85025; 85610; 85730; 87086; 93005; 99285; 99285-25; J0881; J2405; J7040; Q0163

== ENCOUNTER → 2017-12-07 | Outpatient (CLI) | payer MEDICARE | END | disposition home or self-care (01) | LOC: PMGWOUND 10:30 | DX: E11.622 Type 2 diabetes mellitus with other skin ulcer (principal); L97.221 Non-pressure chronic ulcer of left calf limited to breakdown of skin; I87.333 Chronic venous hypertension (idiopathic) with ulcer and inflammation of bilateral lower extremity; I70.248 Atherosclerosis of native arteries of left leg with ulceration of other part of lower leg; E11.22 Type 2 diabetes mellitus with diabetic chronic kidney disease; I13.2 Hypertensive heart and chronic kidney disease with heart failure and with stage 5 chronic kidney disease, or end stage renal disease; I50.23 Acute on chronic systolic (congestive) heart failure; N18.6 End stage renal disease; G89.29 Other chronic pain; M54.2 Cervicalgia; E66.01 Morbid (severe) obesity due to excess calories; E11.42 Type 2 diabetes mellitus with diabetic polyneuropathy; F17.220 Nicotine dependence, chewing tobacco, uncomplicated; I25.2 Old myocardial infarction; F32.9 Major depressive disorder, single episode, unspecified; G30.9 Alzheimer's disease, unspecified; F02.80 Dementia in other diseases classified elsewhere, unspecified severity, without behavioral disturbance, psychotic disturbance, mood disturbance, and anxiety; F41.9 Anxiety disorder, unspecified; I25.810 Atherosclerosis of coronary artery bypass graft(s) without angina pectoris; F44.9 Dissociative and conversion disorder, unspecified; Z99.2 Dependence on renal dialysis; Z68.43 Body mass index [BMI] 50.0-59.9, adult; Z95.820 Peripheral vascular angioplasty status with implants and grafts; Z95.1 Presence of aortocoronary bypass graft; Z79.4 Long term (current) use of insulin | CPT/HCPCS: 29581 ==

== ENCOUNTER → 2017-12-09 | Outpatient (CLI) | payer MEDICARE | END | disposition home or self-care (01) | LOC: PMGWOUND 11:23 | DX: E11.622 Type 2 diabetes mellitus with other skin ulcer (principal); L97.221 Non-pressure chronic ulcer of left calf limited to breakdown of skin; L97.821 Non-pressure chronic ulcer of other part of left lower leg limited to breakdown of skin; I87.333 Chronic venous hypertension (idiopathic) with ulcer and inflammation of bilateral lower extremity; I70.248 Atherosclerosis of native arteries of left leg with ulceration of other part of lower leg; E11.22 Type 2 diabetes mellitus with diabetic chronic kidney disease; I13.2 Hypertensive heart and chronic kidney disease with heart failure and with stage 5 chronic kidney disease, or end stage renal disease; I50.23 Acute on chronic systolic (congestive) heart failure; N18.6 End stage renal disease; G89.29 Other chronic pain; M54.2 Cervicalgia; E66.01 Morbid (severe) obesity due to excess calories; E11.42 Type 2 diabetes mellitus with diabetic polyneuropathy; F17.220 Nicotine dependence, chewing tobacco, uncomplicated; I25.2 Old myocardial infarction; F32.9 Major depressive disorder, single episode, unspecified; G30.9 Alzheimer's disease, unspecified; E21.3 Hyperparathyroidism, unspecified; F02.80 Dementia in other diseases classified elsewhere, unspecified severity, without behavioral disturbance, psychotic disturbance, mood disturbance, and anxiety; F41.9 Anxiety disorder, unspecified; I25.810 Atherosclerosis of coronary artery bypass graft(s) without angina pectoris; F44.9 Dissociative and conversion disorder, unspecified; Z99.2 Dependence on renal dialysis; Z68.43 Body mass index [BMI] 50.0-59.9, adult; Z95.820 Peripheral vascular angioplasty status with implants and grafts; Z95.1 Presence of aortocoronary bypass graft; Z79.4 Long term (current) use of insulin | CPT/HCPCS: 29581 ==

== ENCOUNTER → 2017-12-15 | Outpatient (CLI) | payer MEDICARE | END | disposition home or self-care (01) | LOC: PMGWOUND 11:15 | DX: I87.333 Chronic venous hypertension (idiopathic) with ulcer and inflammation of bilateral lower extremity (principal); E11.622 Type 2 diabetes mellitus with other skin ulcer; L97.221 Non-pressure chronic ulcer of left calf limited to breakdown of skin; L97.211 Non-pressure chronic ulcer of right calf limited to breakdown of skin; E11.22 Type 2 diabetes mellitus with diabetic chronic kidney disease; I13.2 Hypertensive heart and chronic kidney disease with heart failure and with stage 5 chronic kidney disease, or end stage renal disease; I50.9 Heart failure, unspecified; N18.6 End stage renal disease; Z99.2 Dependence on renal dialysis; F41.9 Anxiety disorder, unspecified; F32.9 Major depressive disorder, single episode, unspecified; E66.01 Morbid (severe) obesity due to excess calories; Z68.43 Body mass index [BMI] 50.0-59.9, adult; E11.51 Type 2 diabetes mellitus with diabetic peripheral angiopathy without gangrene; E11.42 Type 2 diabetes mellitus with diabetic polyneuropathy | CPT/HCPCS: 29581; 87071; 87075; 87205 ==